=== PATIENT | female | born 1960 | race Caucasian/White ===

== ENCOUNTER 2025-03-12 09:00 | Outpatient (OUT) | payer OTHER, SELFPAY ==
--- OUTSIDE RECORDS SUMMARY | 2025-03-01 15:00 | XMS_ITS | Encounter Summary ---
Author Organization [facility] Address [address] [place] [id number] Care Team Providers Care Brake Rider Name Role Phone Arsen Winn MD Primary Care Provider Source Comments In the event this information is protected by the Federal Confidentiality of Alcohol and Drug AbusePatient Records regulations: The Federal rules restrict any use of the information to criminally investigate or prosecute any alcohol or drug abuse patient.[facility] Reason for Visit * ReasonCommentsLeukemia Encounter Details DateTypeDepartmentCare Team (Latest Contact Info)Fjsqmmzqxqk21/03/2025 3:00 PM ESTVisit (SP) Office Hematology/Oncology [address] [place] [address] [place] [address] Sanjana Beard APRN.FAMILY LIVING EDUCATOR [address] [place] [address] CLL (chronic lymphocytic leukemia) (HCC) (Primary Dx); History of pneumonia Social History Tobacco UseTypesPacks/DayYears UsedDateSmoking Tobacco: NeverSmokeless Tobacco: NeverAlcohol UseStandard Drinks/WeekCommentsNot Currently0 (1 standard drink = 0.6 oz pure alcohol)one drink per monthOverall Financial Resource Strain (CARDIA)AnswerDate RecordedHow hard is it for you to pay for the very basics like food, housing, medical care, and heating?Not hard at all08/31/2022HQ-2 AnswerDate RecordedPHQ-2 geasr23004/30/2024Hunger Vital SignAnswerDate Recorded Within the past 12 months, you worried that your food would run out before you got the money to buymore.Never true08/31/2022Within the past 12 months, the food you bought just didn't last and you didn't have money to get more.Never true 08/31/2022RAPARE - TransportationAnswerDate RecordedIn the past 12 months, has lack of transportation kept you from medical appointments or from getting medications?No08/31/2022In the past 12 months, has lack of transportation kept you from meetings, work, or from getting things needed for daily living?No 08/31/2022Housing Stability Vital SignAnswerDate RecordedIn the last 12 months, was there a time when you were not able to pay the mortgage or rent on time?No 08/31/2022Number of Places Lived in the Last YearNot on file08/31/2022In the last 12 months, was there a time when you did not have a steady place to sleep or slept in ashelter (including now)?No08/31/2022rea Deprivation IndexAnswer Date RecordedNational Score (1-100), lower number is lower wnkw874708/31/2022State Score (1-10), lower number is lower dmlq404ata from: https://www.neighborhoodatlas.medicine.[facility].edu/. Last address used for [address] [facility]08/31/2022CommentsNoSex and Gender InformationValueDate RecordedSex Assigned at LvanlBrprtg55/22/2020 12:31 AM EDT Legal ZprKnjkdf15/02/2012 9:32 AM ESTGender UdnxgfbhWgdfyg55/22/2020 12:31 AM EDTSexual XagnkvzobdsOmisvszq37/22/2020 12:31 AM EDTOccupationIndustryJob Start DateJob End DateCleansNot on fileNot on fileNot on filedocumented as of this encounter Last Filed Vital Signs Vital SignReadingTime TakenCommentsBlood Mfjgvvyt640/7103/01/2025 2:59 PM EST Tqhnl894903/01/2025 2:59 PM JUCBfusceiepgo49.6 ??C (97.8 ??F)03/01/2025 2:59 PM ESTRespiratory Uznz007705/01/2024 2:59 PM ESTOxygen Phipnihmrl71%03/01/2025 2:59 PM ESTInhaled Oxygen Concentration--Xmbmte93.1 kg (174 lb 6.1 oz)03/01/2025 2:59 PM ESTHeight--Body Mass Index31.904 6:02 PM EDTdocumented in this encounter Functional Status * Are you deaf or do you have serious difficulty hearing?AnswerDate of GpmoyuktykJmtoliGj74/07/2023 1:17 PM Maria Esther Castorena RN * Are you blind or do you have serious difficulty seeing, even when wearing glasses?AnswerDate of GbplomkdjhTusvueDk15/07/2023 1:17 PM Maria Esther Castorena RN * Do you have serious difficulty walking or climbing stairs?AnswerDate of LknyizmuirVcfksoQq12/07/2023 1:17 PM Maria Esther Castorena RN * Do you have difficulty dressing or bathing?AnswerDate of AssessmentAuthorNo 09/02/2022 1:17 PM Maria Esther Castorena RN * Because of a physical, mental, or emotional condition, do you have difficulty doing errands alone such as visiting a doctor's office or shopping?AnswerDate of UbapimfsvxGhqdysDu74/07/2023 1:17 PM Maria Esther Castorena RN documented as of this encounter Mental Status * Because of a physical, mental, or emotional condition, do you have serious difficulty concentrating, remembering, or making decisions?AnswerEntry Date EcdmcbWf87/24/2022 5:08 PM Shivani Lopez RN documented in this encounter Progress Notes * Sanjana Beard APRN.FAMILY LIVING EDUCATOR - 03/01/2025 3:00 PM EST Images from the original note were not included. NAME: Antony Mercedes CLINIC NO.: [id number] DATE OF SERVICE: March 01, 2025 (Kisha) Some elements in this clinic note that are critical to medical decision making have been carefully reviewed and included from a prior clinic note dated: January 13, 2024 (Luca) Referring Provider: Suyapa Quintanilla Additional Clinicians involved in Antony Mercedes's care: Yoselin Trivedi DIAGNOSIS: CLL CASE SUMMARY / ASSESSMENT: 64 year old woman with Omer 0 CLL SUMMARIZED PLAN: CBC, CMP, LDH, Uric acid q6 months RTC in 1 year - labs same day. AI ASSISTED A/P: 1. CLL (chronic lymphocytic leukemia) (HCC) (C91.10) WBC count has improved to 24 from 27.2 six months ago; platelet count is normal. No new B symptoms or lymphadenopathy reported. - Order CBC and CMP in 6 months. - Return to clinic in 1 year with labs completed 1 day prior to visit. - Advised patient to contact via Nuikut if any new symptoms or concerns arise before next scheduled follow-up. 2. History of pneumonia (Z87.01) Recent pneumonia resolved; no current concerns. CASE HISTORY - Reverse Chronological Order 01/28/2023 - MRI Foot/Toes: Plantar fasciitis at the central cord origin with small calcaneal spur and mild reactive bone marrow edema. Mild common peroneal and flexor hallucis longus tenosynovitis. 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 02/24/2021 - PB FLOW: CD5, CD19, CD20, CD45, CD200 and kappa slc (dim) - (CLL) 12/18/2020 - Absolute lymphocytosis noted on CBC - 4.92 04/09/2018 - CT Abdomen (Abdominal pain): Negative - no splenomegaly. HPI: Updated Visit, March 01, 2025: The patient is a 64-year-old female with leukocytosis presenting for routine follow-up. The patienthas been undergoing routine laboratory monitoring every 6 months. Since her last visit, she reports having recently recovered from pneumonia, which she states typically takes her longer to recover from compared to others. She reports mild sweating since her pneumonia, but denies any new or worsening symptoms, including night sweats, fever, or lymphadenopathy. Updated Visit, January 13, 2024: Here with sister Joy who is visiting from [place]. No B symptoms, reviewed findings thoroughly and answered all questions. Updated Visit, May 22, 2023: Karo returns today for a follow up. We reviewed her labs from March. Her glucose and LDH were both a little high. Overall, her blood work looks great. She had COVID in January - her symptoms were really bad. She has a cold sore on her upper lip, if she gets one again, she can ask her PCP for medication. Lady: Negative for suboccipital, cervical, submandibular, supraclavicular, axillary, epitrochlear LN chains. November 19, 2022, Updated Visit: Virtual Visit Joined by Joseph CLL - del 13q Doing well no B symptoms Doubling time within standards. No evidence of progression No weight loss - she is a summertime sweller. April 25, 2022, Updated Visit: Virtual Visit Joined by Joseph Newly diagnosed CLL - del 13q Updated Visit, March 07, 2022: Transition of Care I had the pleasure of meeting with Karo for transition of care after her previous oncologist Dr. Radha Quintanilla left our system. I reviewed her diagnostic and historical course with her. I also reviewed her recent laboratories that were obtained at [facility] with her. We noted that her I GVH stat us was mutated. This is a good prognostic indicator. Her FISH evaluation for CLL was not obtained and I will send for this again. Her CBC indicates lymphocytosis with an absolute lymphocyte count approximately 16,000 but she has normal H&H and platelet counts. She has no indicators for treatment at this time with no B symptoms. REVIEW OF SYSTEMS Per HPI and otherwise negative by full review of organ systems. ECOG PERFORMANCE STATUS: 0 PHYSICAL EXAMINATION: Vitals: BP 121/71 Pulse 80 Temp (Src) 97.8 (Temporal) Resp 16 Wt 174 lb 6.1 oz (79.1kg) SpO2 97% Body surface area is 1.86 meters squared. Exam limited to gross visualization where appropriate. Gen.: This is an age-appropriate patient in no acute distress. Head: Appears atraumatic with no visible lesions. Eyes: Pupils equally round and reactive to light, extraocular muscles are intact. Neck: Supple. Respiratory: Appears to be respiring comfortably. Neurologic: Nonfocal to gross visualization. Alert and oriented ??3. Psychiatric: No evidence of inappropriate anxiety or depression. Skin: Visible areas of skin without rash, lesions, wounds or petechiae. ALLERGIES: ALLERGIES Allergen Reactions Adhesive Tape (Krysta* skin irritation Amoxicillin Other: See Comments Ciprofloxacin Diarrhea, GI Upset, Mental Status Change, Vomiting Demoral [Meperidine] Vomiting Erythromycin Vomiting possible hives Latex Swelling Lexapro [Escitalopr* Other: See Comments Prednisone GI Upset Tramadol Vomiting Tylenol [Acetaminop* Makes pt. feel shaky/rapid heart rate MEDICATIONS: estradiol (ESTRACE) 0.01 % (0.1 mg/gram) vaginal cream Use 1 g vaginally two times a week. traZODone (DESYREL) 100 mg tablet OMEGA-3 FATTY ACIDS ORAL Take 1,000 mg by mouth once daily. Calcium Carbonate-Vitamin D3 180-5,000 mg-unit tab Take by mouth every other day. hyoscyamine (LEVSIN) 0.125 mg tablet Take 1 tablet by mouth every 8 hours as needed for up to 7 days. liothyronine (CYTOMEL) 5 mcg tablet Take 5 mcg by mouth twice daily. metroNIDAZOLE 0.75 % cream Apply 1 application to affected area as needed. LABORATORY VALUES: WBC (k/uL) Date Value 03/01/2025 24.00 (H) RBC (m/uL) Date Value 03/01/2025 4.73 Hemoglobin (g/dL) Date Value 03/01/2025 14.6 Hematocrit (%) Date Value 03/01/2025 43.6 MCV (fL) Date Value 03/01/2025 92.2 MCH (pg) Date Value 03/01/2025 30.9 MCHC (g/dL) Date Value 03/01/2025 33.5 RDW-CV (%) Date Value 03/01/2025 12.7 Platelet Count (k/uL) Date Value 03/01/2025 242 MPV (fL) Date Value 03/01/2025 9.9 Glucose (mg/dL) Date Value 03/01/2025 96 BUN (mg/dL) Date Value 03/01/2025 12 Creatinine (mg/dL) Date Value 03/01/2025 0.75 Sodium (mmol/L) Date Value 03/01/2025 139 Potassium (mmol/L) Date Value 03/01/2025 4.7 Chloride (mmol/L) Date Value 03/01/2025 103 CO2 (mmol/L) Date Value 03/01/2025 27 Protein, Total (g/dL) Date Value 03/01/2025 7.3 Albumin (g/dL) Date Value 03/01/2025 4.5 Calcium, Total (mg/dL) Date Value 03/01/2025 9.9 Alkaline Phosphatase (U/L) Date Value 03/01/2025 68 Bilirubin, Total (mg/dL) Date Value 03/01/2025 0.4 AST (U/L) Date Value 03/01/2025 24 ALT (U/L) Date Value 03/01/2025 33 DIAGNOSIS: (C91.10) CLL (chronic lymphocytic leukemia) (HCC) (primary encounter diagnosis) Plan: COMPLETE BLOOD COUNT AND DIFFERENTIAL, COMPREHENSIVE METABOLIC PANEL, LACTATE DEHYDROGENASE, URIC ACID (Z87.01) History of pneumonia PAST MEDICAL HISTORY Diagnosis Date Abnormal cytology 03/15/2016 Acute low back pain 03/20/2017 Asthma (HCC) Hypothyroidism 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 Antonio/Chris/Rpt in 10 years CYSTO.PANENDO 02/13/2022 CYSTOSCOPY 10/29/2016 Dr. Martinez - Dilation HYSTERECTOMY HX TONSILLECTOMY & ADENOIDECTOMY <AGE 14 TOTAL ABDOMINAL HYSTERECT W/WO RMVL TUBE OVARY 1999 Social History Tobacco Use Smoking status: Never Smokeless tobacco: Never Vaping Use Vaping status: Never Used Substance Use Topics Alcohol use: Not Currently Comment: one drink per month Drug use: No FAMILY HISTORY Problem Relation Age of Onset other (lipids) Father Ischemic Heart Disease Father stent Cataract Mother other (POTS) Mother other (Ankylosing spondylitis) Mother other (Mary Kay Danlos Syndrome) Sister other (Scoliosis) Sister other (Scoliosis) Sister other (POTS) Sister other (diverticulitis) Maternal Grandmother Ischemic Heart Disease Paternal Grandfather of [place] in 50's. Crohn's Disease Son I spent a total of 20 minutes on the date of the service which included preparing to see the patient, kdpb-ri-jarn patient care, completing clinical documentation, obtaining and/or reviewing separately obtained history, performing a medically appropriate examination, counseling and educating the pat ient/family/caregiver, ordering medications, tests, or procedures, independently interpreting results (not separately reported), communicating results to the patient/family/caregiver, and care coordination (not separately reported). Sanjana Beard APRN, [facility] BLANCHER-[facility], [facility] H[facility] Provided at: [place], [place] CC: Arsen Winn MD, [address] [facility] [id number] documented in this encounter Plan of Treatment DateTypeDepartmentCare Team (Latest Contact Info)Uiqxyeqjham19/04/2026 2:45 PM EDTOffice Visit [facility] [address] [place] [address] [place] [address] 6 month lab02/28/2026 2:45 PM ESTOffice Visit [facility] [address] [place] [address] LABS02/28/2026 3:00 PM ESTVisit (SP) Office Hematology/Oncology [address] [place] [address] Sanjana Beard APRN.FAMILY LIVING EDUCATOR [address] [place] [address] 1 year follow up with labsNameTypePriorityAssociated DiagnosesOrder Schedule COMPLETE BLOOD COUNT AND DIFFERENTIALLabRoutine CLL (chronic lymphocytic leukemia) (HCC) Every 6 months for 2 Occurrences starting 03/01/2025 until 03/01/2026 COMPREHENSIVE METABOLIC PANELLabRoutine CLL (chronic lymphocytic leukemia) (HCC) Every 6 months for 2 Occurrences starting 03/01/2025 until 03/01/2026LACTATE DEHYDROGENASELabRoutine CLL (chronic lymphocytic leukemia) (HCC) Every 6 months for 2 Occurrences starting 03/01/2025 until 03/01/2026URIC ACID LabRoutine CLL (chronic lymphocytic leukemia) (HCC) Every 6 months for 2 Occurrences starting 03/01/2025 until 03/01/2026documented as of this encounter Visit Diagnoses Diagnosis CLL (chronic lymphocytic leukemia) (HCC)- Primary Chronic lymphoid leukemia, without mention of having achieved remission History of pneumonia Personal history of pneumonia (recurrent) documented in this encounter Care Teams Team MemberRelationshipSpecialtyStart DateEnd Date Arsen Winn MD [address] [place] [address] PCP - GeneralFamily Medicine07/01/19documented as of this encounter
--- OUTSIDE RECORDS SUMMARY | 2025-03-12 03:53 | XMS_ITS | Continuity of Care Document ---
Author Organization [facility] Address [address] [place] [address] Phone Care Team Providers Care Environmental Conflict Manager Name Role Phone Susannah Mcgill APRN Primary Care Provider Russel Pickard PA-C Emergency Provider [phone] Mandy Morelos DO Attending Provider Jie Dave APRN Attending Provider Susannah Mcgill APRN Attending Provider Care Teams Patient Care Team Team Status: Active Member Role/Relationship Status Dates Susannah Mcgill APRN [employer]ER-C Primary Care Provider Active Susannah Mcgill APRN [employer]ASS INSTALLER-CPrimary Care ProviderActive Visit Care Team Team Status: Inactive Member Role/Relationship Status Dates Susannah Mcgill APRN [employer] INST[employer]-C Primary Care Provider Active Start: January 052024 End: January 05, 2025Jorge Alberto Thrasher ProviderActiveStart: January 05, 2025 End: January 05, 2025 Visit Care Team Team Status: Inactive Member Role/Relationship Status Dates Susannah Mcgill APRN [employer] INST[employer]-C Primary Care Provider Active Start: December 282024 End: January 06orly Morelos DOAttending ProviderActiveStart: January 06, 2025 End: January 06, 2025 Visit Care Team Team Status: Inactive Member Role/Relationship Status Dates Susannah Mcgill APRN [employer] INST[employer]ER-C Primary Care Provider Active Start: January End: February 11Jones Deluca ProviderActiveStart: February 11, 2025 End: February 11, 2025 Visit Care Team Team Status: Inactive Member Role/Relationship Status Dates Susannah Mcgill APRN [employer] INSTALLER-C Primary Care Provider Active Start: January End: February 11Jones Deluca ProviderActiveStart: February 11, 2025 End: February 11, 2025 Patient Care Team Team Status: Inactive Member Role/Relationship Status Dates Susannah Mcgill APRN [employer] INST[employer]ER-C Primary Care Provider Active Start: March 122024 End: March 12, 2025Susannah Mcgill APRN [employer] GLASS INSTALLER-CAttending ProviderActive Start: March 12, 2025 End: March 12, 2025 Chief Complaint and Reason for Visit Chief Complaint Admit Date abd pain January 05, 2025 10:19am diverticulitis January 06, 2025 10:23am cough February 11, 2025 2 :07pm R05.9 R06.02 February 11, 2025 2 :45pm pneumonia f/u March 12, 2025 8:24am Reason for Visit Admit Date Diverticulitis January 06, 2025 10:23am Respiratory infection February 11, 2025 2:07pm Asthma March 12, 2025 8:24am Eustachian tube dysfunction February 8:24am Allergies, Adverse Reactions, Alerts Allergen Type Severity Reaction Last Updated Verified Status Comments amoxicillin Allergy Moderate Unknown Reaction Novembe r 2024 8:25am Yes Active ciprofloxacinAllergyUnknownGINovember 2024 8:25amYesActiven/v/ and diarrheaerythromycin baseAllergyUnknownVomitingNovember 2024 8:25amYes ActivemeperidineAllergyUnknownVomitingNovember 2024 8:25amYesActive adhesive tapeAllergyUnknownSwelling of Lip/Tongue/ThroatNovember 2024 8:25amYesActivelatexAllergyUnknownSwelling of Lip/Tongue/ThroatNovember 2024 8:25amYesActivemetronidazoleAllergyUnknownHivesNovember 2024 8:25am YesActivedizziness, reaction to the oral meds also GI Social History Smoking Status Status Start Date End Date Date of Observa tion Never smoked tobacco (finding) January 05, 2025 12:36pm Observation Status Observation Response Date of Response Legal Sex Female (finding) Sex Assigned At BirthFemaleDecember 1959 Family History Relationship Condition Age at Onset Recorded Date/T sloane brother Diabetes mellitus Unknown fatherHeart diseaseUnknownsonAcute Crohn's diseaseUnknownmotherDisorder of liver Unknown Problems Active Problems Problem Diagnosis/Recorded Date Onset Date Status C omments Alternating constipation and diarrhea August 01, 2023 12:33pm Unknown Active Eustachian tube dysfunctionNovember 2024 8:48amUnknownActiveShortness of breathNovember 2024 8:51amUnknownActiveChronic lymphatic leukemiaMay 2023 6:55amUnknownActiveAnxietyJanuary 2024 9:56amUnknownActiveDysphagia August 01, 2023 12:55pmUnknownActiveDiarrheaMarch 2024 10:49amUnknown ActiveDysuriaApril 2024 10:29amUnknownActiveHypothyroidJune 2023 2:13pmUnknownActiveEarly satietyJune 2023 10:54amUnknownActiveImpaired fasting glucoseJanuary 2024 9:54amUnknownActivePOTS (postural orthostatic tachycardia syndrome)April 19, 2019 9:53amUnknownActiveFecal urgencyJuly 2023 12:51pmUnknownActiveAbdominal pressureJune 2023 10:54amUnknown ActiveBronchitisApril 2024 3:06pmUnknownActiveElevated LDL cholesterol levelJanuary 2024 9:55amUnknownActiveNauseaJune 2023 10:54amUnknown ActiveIBS (irritable bowel syndrome)November 04, 2023 12:52pmUnknownActiveAsthmaMay 2023 6:56amUnknownActiveseasonal allergiesInactive/Resolved Problems Problem Diagnosis/Recorded Date Onset Date Status C omments Diverticulitis January 05, 2025 12:19pm Unknown Reso lved Medications Medication Status Dose Units Route Directions Qty Days Refills S tart Date Stop Date End Date Reason(s) Instructions Adherence Amoxicillin-Pot Clavulanate (Augmentin Xr) 1,000-62.5 mg tablet extended release 12 hr Discontinued 1 TAB PO Twice daily 14 7 0 August 21, 2023 11:00pm August 22, 2023 2:05pmAmoxicillin-Pot Clavulanate (Augmentin) 250-62.5 mg/5 mL suspension for boziahoiipnkreDpflgshwrbvy1JPQZVkrck uqorn6690Oheam 2023 11:00pmMay 2023 6:43amDicyclomine 10 mg vauxbbyMsopsncmsvdi38NLNQHuwri jluli40468Kmsgk 2024 11:00pmApril 2024 2:48pmTrazodone 100 mg tablet Tsnzgm481SQVVSvhbs at iejvkux56703Mmzn 2024 2:00pmAnxiety Anxiety disorder, unspecifiedComplies with drug therapyThyroid (Pork) (Night Auditor Thyroid) 15 mg jcnqwxUxbyhx60MKPKPsqzp061395Iish 2024 11:00pm Hypothyroidism Hypothyroidism, unspecifiedComplies with drug therapyLevothyroxine (Synthroid) 25 mcg TabletDiscontinuedMCGPODailyDecember 2018 12:00amApril 2023 12:36pmAmoxicillin-Pot Clavulanate (Augmentin) 875-125 mg AxizxlJeyquqpdfoob6RQX MTZ98IYhquhhis 2018 12:00amApril 2023 12:35pmAlbuterol Sulfate 90 mcg/actuation Hfa Aerosol InhalerDiscontinued1 - 4AYGQGGIJXQIHBEF7V as needed for WheezingDecember 2018 12:00amApril 2023 12:39pmPrednisone 10 mg NivvprCrwtkhvniezv18FBJVVrxds301Cgqltasw 2018 12:00amApril 2023 12:36pmadminister with food or milkAzithromycin (Zithromax Z-Christian) 250 mg Tablet Omooymutynsg6lcvy pkPOas directed on dose ebxb75Cgoldhkq 2018 12:00amApril 2023 12:36pmtake 500 mg today (day 1), then 250 mg for 4 days (days 2-5) Promethazine-Codeine 6.25-10 mg/5 mL IognxXpgwwjcvqhmg1CWCLU6P as needed for Vppxv95828Zmtthcgq 2018 12:00amApril 2023 12:36pmAcute asthmatic bronchitis Unspecified asthma, uncomplicatedIbuprofen 600 mg MyapwyAwpvonmoroxc005FCRHSqxah 6 hours as needed for Srkp367Xkbpruzu 2018 12:00amApril 2023 12:36pm do not exceed 4 doses in a 24 hour periodAlbuterol Sulfate 90 mcg/actuation HFA aerosol inhalerActive1 - 2FXOCTCHCSGTYULZ7M as needed for WheezingApril 2023 12:35pmComplies with drug therapyAmoxicillin-Pot Clavulanate 875-125 mg vvfxgnAvywendykqfw1GXNGOZqkpu qxjlj014Qwvfxftfw 8th, 2025 11:00pmSeptember 2024 9:35amOndansetron 4 mg tablet,bcslazbaqvltrtVpjjxu6WLMR4-9 TIMES PER DAY as needed for nausea and bnihqhto206Wowfmnljv 8th, 2025 11:00pmComplies with drug therapyFluticasone Propionate (Flonase Allergy Relief) 50 mcg/actuation spray,vivmcflpxfVmlvqeclsvtf0NKPAHFKQERNDEIAQrnkrXck 2023 11:00pmNovember 2024 8:50amFreeTextSi spray in each nostril Nasally Once a day; Note: Source Status: Not-Taking\PRN; Provider: Parth CeronOndansetron 4 mg tablet,dcqbtwqnsievypPfihjodzsazg2XDBANpoid 6 hours as needed for nausea and vomitingApril 2023 11:00pmOctober 2023 1:02pmMoxifloxacin 400 mg teifcaFsrysvmhbtww279FRXMZnjbm 2023 11:00pmMay 2023 6:43amTrazodone 100 mg jhcwnzMfyjtcjguwhj839RPOBWrigq at bedtimeApril 2023 11:00pmJanuary 2024 1:57pmThyroid (Pork) 30 mg abtfcaWtqriljigees22AJVOMdlhp dailyApril 2023 11:00pmJanuary 2024 1:56pmNaltrexone 1.5 mg capsuleDiscontinued 1.5MGPOApril 2023 11:00pmMay 2023 6:44amtitrating up to 4.5 mg Amoxicillin-Pot Clavulanate 400-57 mg/5 mL suspension for reconstitution Faxnjdcgjeoi21UILCRdyo4992Yvqju 2023 11:00pmApril 2023 1:40pm Linaclotide (Linzess) 145 mcg glcfkpwUxnriyyruwox461EQBXBGglmu21813Lvro 2023 11:00pmOctober 2023 1:02pmHyoscyamine Sulfate 0.125 mg tabletActive 0.125MGPOas neededApril 2024 11:00pmComplies with drug therapyNaltrexone 1.5 mg capsuleActiveMGPOApril 2024 11:00pmThis is a titrationComplies with drug therapyOmeprazole 20 mg tablet,disintegrat, delay bhfZxcbbu29FBSUQkwyv65848 Arianne 2024 11:00pmComplies with drug therapyAmoxicillin-Pot Clavulanate (Augmentin Es-600) 600-42.9 mg/5 mL suspension for peuebnddayrxsjHsyqsostyelo7UI POTwice pulwh565010Gopmfdqzg 2024 11:00pmOctober 2024 1:13pm Guaifenesin 600 mg tablet extended release 34mbYummfgoljyti314NKPJGxzkn daily as needed for chest rydghmdmqz543Ipvwxbv 2024 11:00pmNovember 2024 8:31amDoxycycline Monohydrate 25 mg/5 mL suspension for reconstitution Maknbrooebnc17AWSVNxpqg kysne87574Akitsdx 2024 11:00pmNov2024 8:50amwith foodBenzonatate 200 mg ijtkvsnZwvykxiylszn292KQRMXfnmi times daily as needed for rcxou326Qmvtvgn 15th, 2025 11:00pmMarch 12, 2025 8:50am Fluticasone Propionate (Flonase Allergy Relief) 50 mcg/actuation spray,xdxnncgrsqWnjbbd1BTBDSSDREUWPVIDNcmfi vvbcm93916EjqvwzijMarch 12, 2025 8:47am Dysfunction of eustachian tube Unspecified Eustachian tube disorder, unspecified earComplies with drug therapy Budesonide-Formoterol (Symbicort) 80-4.5 mcg/actuation HFA aerosol inhalerActive 1INHINHALATIONTwice daily10.2024 12:00amAsthma Mild intermittent asthma, uncomplicatedComplies with drug therapyBenzonatate 200 mg lcjbejuAeljqn486MJRMZzbjv times daily as needed for wvfpu802Mabpcmoy2024 8:49amComplies with drug therapyPrednisone 10 mg kddghsJnxyss82BRSGsvrqo041 March 12, 2025 12:00amTake 40 mg for 2 days, 30 mg for 2 days, 20 mg for 2 days, 10 mg for 2 days, 1/2 tablet for 2 daysComplies with drug therapyThyroid (Pork) 30 mg ynaajdIwdoobecufbf57BQRGUidamXvamgqy 2024 1:50pmJuly 2024 2:01pmHypothyroidism Hypothyroidism, unspecifiedTrazodone 100 mg zdqjapQarhhpmaqdob527SDZMDyeey at bedtimeJanuary 2024 1:56pmJuly 2024 2:02pmAnxiety Anxiety disorder, unspecified Immunizations Immunization Event Date Not Given Reason Dose Number Gearman Lot Number Reason(s) Given Vaccine Information Statement (VIS) Detail Administration Location COVID-19 mRNA, Comirnaty (TraNet'te) July 08 COVID-19 mRNA, Comirnaty ([employer]Net[employer]e)July 29OVID-19 mRNA, Comirnaty ([employer]Net[employer]e)March 26OVID- mRNA Bivalent Booster (TraNet'te)January 13OVID-19 ([employer]) 12Y and olderJanuary 2023Influenza Quadrivalent PF MDCKDecember 2021 Procedures Procedure Date Performed Status CT abdomen pelvis w con January 05, 2025 11:3 2am completed XR chest 2V* February 11, 2025 1:59pm comple barb Relevant Diagnostic Tests and/or Laboratory Data Laboratory Results Test Collection Date/Time Result Date/Time Result Interpretation Reference Range Result Comment Performing Site Corrected White Blood Count January 05, 2025 10:38am January 05, 2025 10:55am 26.6 10*3/uL Above high normal 3.8-11.6 [facility] [id number] [address] [facility] 86677Wuloglxhbjw WBC CountSeptember 2024 10:38amSeptember 2024 10:55am26.6 10*3/uLAbove high normal3.8-11.6F[facility] [id number] [address] [facility] 39656Bii Blood CountSeptember 2024 10:38amSeptember 2024 10:55am4.75 10*6/uL3.60-5.00[facility] [id number] [address] [facility] 69711WdbcmtrsjoPndgogpxy 2024 10:38amSeptember 2024 10:55am14.6 g/dL11.8-15.4F[facility] [id number] [address] [facility] 04566ArzytwpsmgEjtnsdveu 2024 10:38amSeptember 2024 10:55am43.4 %34.0-46.4FMem[facility] [id number] [address] [facility] 54922Vvcp Corpuscular VolumeSeptember 2024 10:38amSeptember 2024 10:55am91.5 gS87-079OjbblpznsMagruder Memorial [facility] [id number] [address] [facility] 11140Pjfa Corpuscular HemoglobinSeptember 2024 10:38amSeptember 2024 10:55am30.8 pg24.7-34.3FMemorial [facility] [id number] [address] [facility] 66743Tgnb Corpuscular Hemoglobin ConcentSeptember 2024 10:38am January 05, 2025 10:55am33.7 g/dL32.0-35.0[facility] [id number] [address] [facility] 88721Wap Cell Distribution WidthSeptember 2024 10:38amSept2024 10:55am13.0 %11.9-15.3F[facility] [id number] [address] [place] [address] 43006Gksqwsei CountSept2024 10:38amSept2024 10:23kf378 10*3/uC083-820SzojmlqwdMagruder Memorial [facility] [id number] [address] [place] [address] 13252Nnza Platelet VolumeSept2024 10:38amSept2024 10:55am8.1 fL6.3-10.7FMem[facility] [id number] [address] [place] [address] 20365Dusglquo Distribution WidthSeptember 2024 10:38amSept2024 11:49am24.83 %Above high normal0.00-20.00The predictive value of MDW for identifying sepsis in patients with hematological abnormalities hasnot been establishedMag[facility] [id number] [address] [facility] 22527Siiocbpjeuc (%) (Auto)January 05, 2025 10:38amSept2024 11:49amN/[facility] [id number] [address] [place] [address] 43873Sayxrgstklw (%) (Auto)January 05, 2025 10:38amSept2024 11:49amN/[facility] [id number] [address] [place] [address] 28723Nphxmfcsf (%) (Auto)January 05, 2025 10:38amSept2024 11:49amN/[facility] [id number] [address] [place] [address] 88778Qctdihmnkdj (%) (Auto)January 05, 2025 10:38amSeptember 2024 11:49amN/[facility] [id number] [address] [facility] 30557Hhyrgxrbu (%) (Auto)January 05, 2025 10:38amSeptember 2024 11:49amN/[facility] [id number] [address] [facility] 62856Luxjcexei RBC Relative Count (auto)January 05, 2025 10:38am January 05, 2025 11:49amN/[facility] [id number] [address] [facility] 36876Aoooybejmlv # (Auto)January 05, 2025 10:38amSeptember 2024 11:49amN/[facility] [id number] [address] [facility] 99451Pwovndwhyqb # (Auto)January 05, 2025 10:38amSeptember 2024 11:49amN/[facility] [id number] [address] [facility] 95130Eqyshbynv # (Auto)January 05, 2025 10:38amSeptember 2024 11:49amN/[facility] [id number] [address] [facility] 92022Uqnpstbwaav # (Auto)January 05, 2025 10:38amSeptember 2024 11:49amN/[facility] [id number] [address] [facility] 89787Bkbzgwtiv # (Auto)January 05, 2025 10:38amSeptember 2024 11:49amN/[facility] [id number] [address] [facility] 72314Prwlggrgq NeutrophilsSept2024 10:38amSeptember 2024 11:49am29 %Below low -15ZynxmfypwMagruder Memorial [facility] [id number] [address] [facility] 14700Oscieycigby %January 05, 2025 10:38amSeptember 2024 11:49am62 %Above high fozosb88-79IkozfmwxeMagruder Memorial [facility] [id number] [address] [facility] 73313Eusdasvrn %Arianne 2024 10:38amSeptember 2024 11:49am10 %2-11[facility] [id number] [address] [facility] 91261Euh Blood Cell MorphologySeptember 2024 10:38amSeptember 2024 11:49amN/[facility] [id number] [address] [facility] 43963CmqweqmctjolFvrllbfpo 2024 10:38amSeptember 2024 11:49amSlightMagruder Memorial [facility] [id number] [address] [facility] 81685RaoyhetzmcwuEnnlnvjxq 2024 10:38amSeptember 2024 11:49amSlightMagruder [facility] [id number] [address] [facility] 03277Pctlup CellsSeptember 2024 10:38amSeptember 2024 11:49amModerateMagruder Memorial Hospital [facility] [id number] [address] [facility] 05365Noxlckrg EstimateSeptember 2024 10:38amSeptember 2024 11:49amNormalNormalMagruder [facility] [id number] [address] [facility] 37116Bqylghts Morphology CommentSeptember 2024 10:38amSeptember 2024 11:49amNormalNormalMagruder [facility] [id number] [address] [facility] 24231Brdxq ColorSeptember 2024 10:32amSeptember 2024 10:55amLight-yellowYellowMagruder Memorial Hospital [facility] [id number] [address] [facility] 48897Egiqh AppearanceSeptember 2024 10:32amSeptember 2024 10:55amClearClearMagruder Memorial [facility] [id number] [address] [place] [address] 40557Qouzz Specific GravitySeptember 2024 10:32amSeptember 2024 10:55am1.0111.001-1.030[facility] [id number] [address] [facility] 75853Cxzfe pHSeptember 2024 10:32amSeptember 2024 10:55am 7.55.0-9.0[facility] [id number] [address] [facility] 22043Mhqzp Leukocyte EsteraseSeptember 2024 10:32amSeptember 2024 10:55amNegativeNegativeMagruder Memorial [facility] [id number] [address] [facility] 44653Ersbp NitriteSeptember 2024 10:32amSeptember 2024 10:55amNegativeNegativeMagruder Memorial [facility] [id number] [address] [facility] 32407Sfsza ProteinSeptember 2024 10:32amSeptember 2024 10:55amNegative mg/dLNegativeMagruder Memorial [facility] [id number] [address] [facility] 87545Flipc Glucose (UA)Arianne 2024 10:32amSeptember 2024 10:55amNormal mg/dLNormalMagruder Memorial Hospital [facility] [id number] [address] [facility] 98049Gdapj KetonesSeptember 2024 10:32amSeptember 2024 10:55amNegativeNegativeMagruder Memorial [facility] [id number] [address] [facility] 86619Hwfsd UrobilinogenSeptember 2024 10:32amSeptember 2024 10:55amNormal mg/dLNormalMagruder Memorial Hospital [facility] [id number] [address] [facility] 80135Benlc BilirubinSeptember 2024 10:32amSeptember 2024 10:55amNegativeNegativeMagruder Memorial [facility] [id number] [address] [facility] 10630Ayjve Occult BloodSeptember 2024 10:32amSeptember 2024 10:55amNegativeNegativeMagruder Memorial [facility] [id number] [address] [facility] 13717Citkv HCG, QualitativeSeptember 2024 10:32amSeptember 2024 10:56amNegativeMagruder Memorial Hospital [facility] [id number] [address] [facility] 88432Shcejre LevelSeptember 2024 10:38amSeptember 2024 11:13am97 mg/hZ16-861GTQ recommended reference rangeRandom Glucose Reference Range is dependent on time and content of last meal. Glucose of more than 200 mg/dL in a nonstressed, ambulatory subject supports the diagnosisof Diabetes Mellitus.[facility] [id number] [address] [facility] 89381Rmurz Urea NitrogenSeptember 2024 10:38amSeptember 2024 11:13am11 mg/dL7-25[facility] [id number] [address] [facility] 35090VpwkjjvhjjQscshkvis 2024 10:38amSeptember 2024 11:13am0.79 mg/dL0.60-1.20[facility] [id number] [address] [facility] 31718Owlqorskk GFR (CKD-EPI)January 05, 2025 10:38amSeptember 2024 11:13am> 60.0 mL/MinMagruder Memorial Hospital [facility]tr [id number] [address] [facility] 45297Sdllkg LevelSeptember 2024 10:38amSeptember 2024 11:02xv532 mmol/Z122-876DpeepvlayMagruder Memorial Hospital [facility] [id number] [address] [facility] 54313Fchspwlwj LevelSeptember 2024 10:38amSeptember 2024 11:13am3.9 mmol/L3.5-5.1FMem[facility] Health [facility] [id number] [address] [facility] 96483Shnpgsbv LevelSeptember 2024 10:38amSeptember 2024 11:81vv035 mmol/R33-674GzzsotiogMagruder Memorial [facility] [id number] [address] [facility] 12585Bwhmsg Dioxide LevelSeptember 2024 10:38amSeptember 2024 11:13am27.0 mmol/L21.0-31.0[facility] [id number] [address] [facility] 48421Cpidq GapSeptember 2024 10:38amSeptember 2024 11:13am 11.9 mEq/L6.0-15.0[facility] [id number] [address] [facility] 60253Snpowru LevelSeptember 2024 10:38amSeptember 2024 11:13am9.6 mg/dL8.6-10.3FMem[facility] Health [facility] [id number] [address] [facility] 47360Bvqyt ProteinSeptember 2024 10:38amSeptember 2024 11:13am7.8 g/dL6.4-8.9[facility] [id number] [address] [facility] 12189EzmxuxuTugnswyzi 2024 10:38amSeptember 2024 11:13am 4.9 g/dL3.5-5.7FMem[facility] Health [facility] [id number] [address] [facility] 31533SzxtglzqQnbfggwsx 2024 10:38amSeptember 2024 11:13am 2.9 g/dLMagruder Memorial Hospital [facility] [id number] [address] [facility] 88737Efdalgz/Globulin RatioSeptember 2024 10:38amSeptember 2024 11:13am1.7FMemorial Health System [facility] [id number] [address] [facility] 70122Lehlu BilirubinSeptember 2024 10:38amSeptember 2024 11:13am0.9 mg/dL0.3-1.0[facility] [id number] [address] [facility] 67353Vuoblc BilirubinSeptember 2024 10:38amSeptember 2024 11:13am0.10 mg/dL0.03-0.18FMem[facility] [id number] [address] [facility] 45053Ggadcstt BilirubinSeptember 2024 10:38amSeptember 2024 11:13am0.8 mg/dLMagruder Memorial [facility] [id number] [address] [place] [address] 00800Xmguutfxz Amino Transf (AST/SGOT)January 05, 2025 10:38am January 05, 2025 11:13am24 U/J81-55HxjgnnovzMagruder Memorial Hospital [facility]tr [id number] [address] [place] [address] 98252Yxfipve Aminotransferase (ALT/SGPT)January 05, 2025 10:38am January 05, 2025 11:13am29 U/L7-52[facility] [id number] [address] [place] [address] 66447Kwufgibo PhosphataseSeptember 2024 10:38amSeptember 2024 11:13am66 U/D51-937KntoukasuMagruder Memorial Hospital [facility]tr [id number] [address] [place] [address] 26176JkeifnFjspcbcfk 2024 10:38amSeptember 2024 11:13am 28.0 U/L11.0-82.0[facility] [id number] [address] [place], [place] [address]Pharmacy Creatinine Clearance (ChemSeptember 2024 10:38am January 05, 2025 11:13am72.24[facility] [id number] [address] [place], [place] [address] Diagnostic Imaging Reports Author Ignacio Lal [facility] HospitalAuthoredSeptember 2024 1:04pmReport Dictated Date/TimeDictated ByStatusRadiology ReportSeptember 2024 1:04pm [facility] [place] [id number] [place] Scan Report Signed Patient: Antony Mercedes MR#: [id number] : 1960 Acct:[id number] Age/Sex: 64 / F ADM Date: 5 Loc: ER Room: Type: [facility] ER Attending Dr: Copies to: Russel Pickard PA-C~ Ordering Provider: Russel Pickard PA-C Date of Service: 01/05/25 CT/CT abdomen pelvis w con: LLQ TTP. CT Abdomen and Pelvis withcontrast TECHNIQUE: Axial imaging with 2-D reconstruction. . The CT exam was performed using one or more the following dose reduction techniques: Automated exposure control, adjustment of the MA and/or Kv according to patient size, or use of the iterative reconstruction technique. COMPARISON: 10/17/2023 History: Left lower quadrant pain LIMITATIONS: None LOWER THORAX Unremarkable LIVER: Hepatic steatosis GALLBLADDER: No gallbladder abnormality identified. BILE DUCTS: No dilatation SPLEEN: Unremarkable PANCREAS: Unremarkable ADRENAL GLANDS: Unremarkable KIDNEYS:Right renal cyst. No nephrolithiasis or hydronephrosis. AORTA: No abdominal aortic aneurysm identified. RETROPERITONEUM: No significant retroperitoneal abnormalities identified. MESENTERY:Unremarkable STOMACH:Unremarkable SMALL BOWEL: The small bowel loops are nondistended. APPENDIX: The appendix is normal. COLON: Descending and sigmoid diverticulosis. Mild peridiverticular fatty stranding and sigmoid colon. No extraluminal air. No abscess. URINARY BLADDER: Urinary bladder is unremarkable. REPRODUCTIVE SYSTEM: Reproductive structures are unremarkable. PNEUMOPERITONEUM: None PERITONEAL FLUID:None BONY STRUCTURES: Mild degeneration ABDOMINAL WALL: Unremarkable CT/CT abdomen pelvis w con IMPRESSION: Mild uncomplicated sigmoid diverticulitis. Impression dictated by: Ignacio Lal M.D. 01/05/2025 1:08 PM Dictation Location: [place] [address] Transcribed By: [facility] 01/05/25 1308 Dictated By: Ignacio Lal DO 01/05/25 1304 Signed By: <Electronically signed by Ignacio Lal DO in [place]> 01/05/25 1308 Author Avila Covington [facility] HospitalAuthoredOctjane [facility] 2024 3:34pmReportDictated Date/TimeDictated ByStatusRadiology ReportOctober 2024 3:34pmRemigio RoqueMercy Health West [facility] [place] [address] [place] [address] XRay Report Signed Patient: Antony Mercedes MR#: [id number] : 1960 Acct:[id number] Age/Sex: 64 / F ADM Date: 5 Loc: [id number] Room: Type: [facility] Attending Dr: Jie Dave APRN Copies to: Jie Dave APRN~ Ordering Provider: Jie Dave APRN Date of Service: 02/11/25 XR/XR chest 2V*: R06.02 - Shortness of breath PA AND LATERAL CHEST: CLINICAL HISTORY: Shortness breath COMPARISON: 07/17/2024 FINDINGS: Unremarkable cardiomediastinal. Lungs clear. No effusion or pneumothorax. XR/XR chest 2V* IMPRESSION: NO ACUTE CARDIOPULMONARY ABNORMALITY. Impression dictated by: Avila Covington M.D. 02/11/2025 3:35 PM Dictation Location: [place] [address] Transcribed By: [facility] 02/11/251534 Dictated By: Avila Covington MD 02/11/251533 Signed By: <Electronically signed by Avila Covington MD in [place]> 02/11/251534 Vital Signs Vital Reading Result Reference Range Collection Date/Time Height 62 [in_i] January 05, 2025 9:39jrVymmma53.80 kgSeptember 2024 9:40amBody Cofsezfmulg87.5 [degF]97.6-99.0Sept2024 9:40amHeart Rate71 /hmi64-036 January 05, 2025 11:54amRespiratory rate18 /acy27-37Ktuspaxlp 9th, 2025 11:54amOxygen saturation by Pulse %95-100Sept2024 11:54am BP Ugslglib225 mm[Hg]100-140Sept2024 11:54amBP Sejyzmtph28 mm[Hg] 60-100September 2024 11:43qiKatwou74 [in_i]January 06, 2025 9:27am Fuiboo21.80 kgSept2024 9:27amBMI (Body Mass Index)32.1 kg/m2 January 06, 2025 9:70mjJavdpn82 [in_i]February 11, 2025 1:57liDvplvz87.80 kgOctober 2024 1:08pmBody Elyvwvikvyy98.1 [degF]97.6-99.0October 2024 1:08pmHeart Rate86 /kfa64-914Qcnhqjj 16th, 2025 1:08pmOxygen saturation by Pulse dottvvrd11 %95-100[facility] 2024 1:08pmBP Purvecok025 mm[Hg]100-140 February 11, 2025 1:08pmBP Kjyzkyyxm59 mm[Hg]60-100Janj[facility] 2024 1:08pmBMI (Body Mass Index)32.1 kg/m3Fuhmhwk 2024 1:27tuNifhtb88 [in_i]March 12, 2025 8:90xqStrsda81.37 kgNov[facility]2024 8:27amBody Ygklmzcoemv24.9 [degF]97.6-99.0[facility]2024 8:27amHeart Rate84 /evo94-970Iqptjkvt 2024 8:27amOxygen saturation by Pulse rtpanktn09 %95-100[facility]2024 8:27amBP Orztthow502 mm[Hg]100-140[facility]2024 8:27amBP Ilencctxc35 mm[Hg]60-100[facility] 2024 8:27amBMI (Body Mass Index)32.0 kg/e2Aijduwrq 2024 8:27am Advance Directives Advance Directive Response Recorded Date/ Time Advance Directives No May 13, 2017 2:44pm Insurance Providers Guarantor Brianna Meraz Address [address] [id number] Info.Home Phone: Coverage Status Update:2025 Payer Group Member ID Coverage Type Subscriber Relationship to Subscriber Effective Date Expiration Date [employer] Claims Id: [id number] Klein , M Id: [id number] [id number] [address] Home Phone: Email: .LeisureLogixSelf Encounters Encounter Location(s) Arrival/Admit Date Discharge/Departure Date Discharge/Departure Disposition Provider(s) Departed Emergency -Emergency Room January 05, 2025 10:19am January 05, 2025 2:10pm Discharged to home care or self care (routine discharge) [facility] 10:23amSeptember 2024 10:41amDischarged to home care or self care (routine discharge)Mandy Morelos , DODeparted Physician/Provider Office Visit- [facility] [place] 2024 2:07pmOctober 2024 3:51pm Discharged to home care or self care (routine discharge)Brianna Menendez APRN Departed [facility] 250Oct[facility] 2024 2:45pmOctober 2024 2:46pmDischarged to home care or self care (routine discharge)Brainna Menendez APRNDeparted Physician/Provider Office Visit-[facility] 2024 8:24amNovember 2024 8:53amDischarged to home care or self care (routine discharge)Susannah Mcgill APRN [employer] MANAGER Recent Diagnosis Onset Date Admit Date Diverticulitis Unknown January 06, 2025 10:23am Respiratory infection Unknown February 112024 2:07pm Asthma Unknown March 12, 2 025 8:24am Eustachian tube dysfunction [facility] 20[facility] 8:24am Assessments Diagnosis Onset Date Resolution Status Admit Date Diverticulitis inactiveSept2024 10:23amRespiratory infectionnoneactiveOctjane [facility]ford memorial hospital 2024 2:07pmAsthmaacuteNov2024 8:24amEustachian tube dysfunction acuteNov2024 8:24am Plan of Treatment Author Mandy Morelos [facility]2024 9:44amacute uncomplicated sigmoid -will send liquid augmentin x 14 days -start on PPI x 14 days. Can extend to 30 days if needed. Pt prefers a liquid form of this as well. -CLD and advance slowly as tolerated to low residue. Can add fiber back in when her symptoms have completely resolved -no indication to repeat colonoscopy as pt just had one -ok to continue miralax as needed -pt to update on symptoms next week Author Jie Dave [facility] 2024 5:52pmAfedhruv NAD. Exam concerning for pneumonia. Offered CXR, patient agreeable, obtained in office with hx of CLL. Per radiology, However discussed with patient that given exam and progression of sx will continue to treat for CAP, advised clear findings on CXR can potentially lag from onset of pneumonia symptoms. Pt was given dose of IM dexamethasone in office, she prefers to avoid PO given GI upset, had tolerated IM steroids in past. Patient also reports hx of several atb causing GI upset and wants to avoid if possible. Rx for doxycycline sent, advised to take with food to prevent GI upset, she is requesting liquid as she has hard time swallowing pills. She already takes daily probiotic. Continue albuterol neb tx as needed. Rx for guaifenesin and Tessalon Perles sent, advised to only take Tessalon Perles as needed for rest, encouraged coughing to prevent worsening congestion. Push fluids and rest. OTC Tylenol as needed for aches/fever. F/U in 2-3 days if no improvement. Advised if unable to get in touch with PCP [place] to call me here at , may need to add secondary atb. Advised if unable to tolerate PO atb may need to consider tx with IM rocephin. Immediate eval by ER if sx worsen or develop warning s/sx as discussed. Patient education printed and provided. Patient verbalizes understanding and is agreeable to treatment plan. Future Tests Future scheduled test information is unavailable Pending Tests Test Name Ordered Date Scheduled Date XR chest 2V* March 12, 2025 8:51am Future Visits Future appointment information is unavailable Future Procedures Future procedure information is unavailable Future Medications Future medication information is unavailable Patient Instructions Instruction Admit Date Clear liquid diet Diverticulitis - Discharge instructionsSeptember 2024 10:19amPneumonia in adults - Discharge instructionsOctober 2024 2:07pm
--- OUTSIDE RECORDS SUMMARY | 2025-03-12 09:09 | XMS_ITS | Encounter Summary ---
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 Name Role Phone Arsen Winn MD Primary Care Provider Source Comments In the event this information is protected by the Federal Confidentiality of Alcohol and Drug AbusePatient Records regulations: The Federal rules restrict any use of the information to criminally investigate or prosecute any alcohol or drug abuse patient.[facility] Encounter Details DateTypeDepartmentCare Team (Latest Contact Info)Ogslgelwyot90/03/2025Travel Social History Tobacco UseTypesPacks/DayYears UsedDateSmoking Tobacco: NeverSmokeless Tobacco: NeverAlcohol UseStandard Drinks/WeekCommentsNot Currently0 (1 standard drink = 0.6 oz pure alcohol)one drink per monthOverall Financial Resource Strain (CARDIA)AnswerDate RecordedHow hard is it for you to pay for the very basics like food, housing, medical care, and heating?Not hard at all3PHQ-2 AnswerDate RecordedPHQ-2 fvyup21404/30/2024Hunger Vital SignAnswerDate Recorded Within the past 12 [...] RecordedNational Score (1-100), lower number is lower fxig519508/31/2022State Score (1-10), lower number is lower ndvv659ata from: https://www.neighborhoodatlas.medicine.[facility].edu/. Last address used for [address] [facility]08/31/2022CommentsNoSex and Gender InformationValueDate RecordedSex Assigned at EgztsUhvefv40/22/2020 12:31 AM EDT Legal SgxZzcmkl81/02/2012 9:32 AM ESTGender DpbgglsoWrbqgy15/22/2020 12:31 AM EDTSexual EkytdykvxabNuoxbkny06/22/2020 12:31 AM EDTOccupationIndustryJob Start DateJob End DateCleansNot on fileNot on fileNot on filedocumented as of this encounter Functional Status * Are you deaf or do you have serious difficulty hearing?AnswerDate of BypjntarzpHeidqxLs81/07/2023 1:17 PM Maria Esther Castorena RN * Are you blind or do you have serious difficulty seeing, even when wearing glasses?AnswerDate of ErlewsejxpKsfywrVm44/07/2023 1:17 PM Maria Esther Castorena RN * Do you have serious difficulty walking or climbing stairs?AnswerDate of MzzcwcdgyfZynfrsAs31/07/2023 1:17 PM Maria Esther Castorena RN * Do you have difficulty dressing or bathing?AnswerDate of AssessmentAuthorNo 09/02/2022 1:17 PM Maria Esther Castorena RN * Because of a physical, mental, or emotional condition, do you have difficulty doing errands alone such as visiting a doctor's office or shopping?AnswerDate of RniohvojocKxsxqyXb86/07/2023 1:17 PM Maria Esther Castorena RN documented as of this encounter Mental Status * Because of a physical, mental, or emotional condition, do you have serious difficulty concentrating, remembering, or making decisions?AnswerEntry Date DetsfgPb35/24/2022 5:08 PM Shivani Lopez RN documented in this encounter Plan of Treatment DateTypeDepartmentCare Team (Latest Contact Info)Tjcbgkihbxt83/04/2026 2:45 PM EDTOffice Visit [facility] [address] [place] [address] [place] [address] 6 month lab02/28/2026 2:45 PM ESTOffice Visit [facility] [address] [place] [address] [place] [address] LABS02/28/2026 3:00 PM ESTVisit (SP) Office Hematology/Oncology [address] [facility] [place] [address] Sanjana Beard APRN.[employer] [address] [address] 1 year follow up with labsdocumented as of this encounter Visit Diagnoses Not on filedocumented in this encounter Care Teams Team MemberRelationshipSpecialtyStart DateEnd Date Arsen Winn MD [address] [place] [address] PCP - GeneralFamily Medicine07/01/19documented as of this encounter
--- OUTSIDE RECORDS SUMMARY | 2025-03-12 09:09 | XMS_ITS | Clinical Summary ---
Author Organization [facility] Address [address] [place] [address] Care Team Providers Care Belt Tender Name Role Phone Audrey Wilkinson LEEANNE Unavailable Susannah Mcgill INTERNET MARKETING COORDINATOR Primary Care Provider Allergies Active AllergyReactionsCriticalityNoted LzowMmorclxxEkzxkqlsiqmcl77/22/2008 Makes pt. feel shaky/rapid heart rate AmoxicillinOther,Iscjkls4402/12/20211373Cdvwcfzthkvb98/28/2005 Other Reaction(s): Vomiting possible hives Erythromycin Base02/12/2021 Other Reaction(s): Vomiting, rash Mnuadwsnywof95/17/2021 Other Reaction(s): nausea, dizziness, headache, Other: See Comments TxwnlLqtqfavr17/28/6339Jnyhqhtocd62/13/2023 Other Reaction(s): Vomiting Meperidine Hcl02/12/2021 Other Reaction(s): Vomitting Nirmatrelvir-RitonavirGI ywpjrmxflalXxsqsz28/18/0341Ymhjgifvmn17/28/2022 Other Reaction(s): GI Upset Fqhzafsa14/24/2014 Other Reaction(s): Vomiting Wound Dressing Pvnakcvw03/28/2007 skin irritation Medications MedicationSigDispense QuantityRefillsLast FilledStart DateEnd DateStatus albuterol HFA 90 mcg/act inhaler Inhale 1 puff every 6 (six) hours if needed for wheezing or shortness of breath 08/01/2023ctive thyroid (INTERNET MARKETING COORDINATOR Thyroid) 15 MG tablet Indications:ESS (euthyroid sick syndrome),Acquired hypothyroidismTake 2 tablets in the AM and 1 tablet in the PM 270 tablet ctive traZODone (Desyrel) 100 MG tablet Indications:Seasonal affective disorderTake 1 tablet (100 mg) by mouth at bedtime 90 tablet ctive dicyclomine (Bentyl) 10 MG capsule Take 10 mg by mouth in the morning and 10 mg before bedtime.5Active hyoscyamine (Anaspaz,Levsin) 0.125 MG tablet Take 0.125 mg by mouth every 8 (eight) hours if irckzu535Active estradiol (Estrace) 0.1 MG/GM vaginal cream Indications:Atrophy of vaginaInsert 1 g into the vagina 2 (two) times a week 42.5 g 5001/14/2026ctive Active Problems ProblemNoted DateDiagnosed DateChronic cgnjrve2402/20/2024Non morbid obesity due to excess voleatgk14/24/2024lantar axmsjejum23/28/2023Irritable bowel syndrome with both constipation and hkeieaqo52/27/2023Sigmoid cnxsyseppowvhh28/27/2023LL (chronic lymphocytic leukemia)04/25/20221233Hkdedmpbyys30/22/2022ervical spine hixefojzkta75/09/2021Hx of fbptnsniuvjb92/09/2021tage 2 chronic kidney disease 06/07/2020Transfusion of blood product refused for faith pdyvjt4706/07/2020 Atrophy of hmuixi4002/24/2020Mild intermittent asthma without complication 12/31/2019Other hgxepds6009/07/2019ESS (euthyroid sick syndrome)07/29/2018Allergy to food02/10/2018NASH (nonalcoholic steatohepatitis)02/04/2018Gastroesophageal reflux disease with dtceyxgfpzs08/14/2018Acquired hvroyyhbcrtacx62/22/2018 Menopausal ziiibica52/17/2018POTS (postural orthostatic tachycardia syndrome) 07/11/2017Seasonal affective /15/2018Lower urinary tract symptoms (LUTS)03/19/2016Complex renal cyst04/06/2014 Resolved Problems ProblemNoted DateDiagnosed DateResolved SiiiYsbywk67/20/202312/cute rolcktcz49/01/2023Fluttering heart/07/2022Frequency of zapxylwpppc17Unspecified disturbances of skin sensation lass 1 jbuxqhi05Left flank pain08/31/2022 01/30/2023Weakness of pelvic floorMalnutrition of mild degree (HHS-HCC)andemiaLeft lower quadrant abdominal painiverticulitis of sigmoid colon 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 without perforation or mfpkmgb59iverticular disease of colon 3416Bzccwcfmwhxnvdmtxnet38/09/202110/04/2023Cardiac arrhythmia onstipation by delayed colonic jyrkwft92 Sick-euthyroid vxjpsxnh74hronic fatigue ynoxwmsr20/14/2018 02/20/2024Other chronic painalcific tendinitis of right nufafatu88cute xjcslgifcxrogn70UTI (urinary tract infection)elvic floor dysfunction in ihtgdc3309/13/2017 02/05/2023Fecal pzpspty56Right flank pain Weak urinary bzumwr18Near bcbhzhc34bnormal wtibthus33Urethral iieupsohi82Microhematuria Recurrent UTIizziness02/20/2012 01/30/2023Extrinsic phbyrt58 Encounters DateTypeDepartmentCare QxqhCbfgrqqhpwd44/04/2025bstract [facility] [place] [facility] [address] [facility] [address] [place] [address] Arsen Winn MD 01/13/2025Telephone [facility] [place] [facility] [address] [place] [id number] Ashley Terrell LPN from Last 3 Months Immunizations ImmunizationAdministration DatesNext DueInfluenza, injectable, MDCK, preservative free, taibcrnfyaap58/15/2445Bsca25/21/2024 Family History Medical HistoryRelationNameCommentsNo Known ProblemsBrotherCrohn's diseaseChild POTSChildCancerFatherWillardHearing lossFatherWillardHeart diseaseFatherWillard Breast cancerFather's SisterFayeArthritisMotherSandraAutoimmune diseaseMother SandrahepatitisGoutMotherSandraHepatitisMotherSandraOsteoarthritisMotherSandra POTSMotherSandraGER diseaseSiblingHyperlipidemiaSiblingNo Known ProblemsSister MelanomaNeg HxRelationNameStatusCommentsBrother4 brothersChildAliveDaughterAlive 1 daughterFatherWillardAliveFather's SisterFayeMotherSandraAliveSiblingSister4 sistersSonAlive1 son Social History Tobacco UseTypesPacks/DayYears UsedDateSmoking Tobacco: NeverSmokeless Tobacco: Never Tobacco Cessation:Counseling Given: Yes Alcohol UseStandard Drinks/WeekCommentsNever0 (1 standard drink = 0.6 oz pure alcohol)Caffeine intake : 1-2 cups per day ntoL7495 Health LiteracyAnswerDate RecordedHow often do you need to have someone help you when you read instructions, pamphlets, or other written material from your doctor or pharmacy? Qivhbp8704/01/2024Humiliation, Afraid, Rape, and Kick questionnaireAnswerDate RecordedWithin the last year, have you been afraid of your partner or ex-partner?No04/01/2024Within the last year, have you been humiliated or emotionally abused in other ways by your partner or ex-partner?No04/01/2024 Within the last year, have you been kicked, hit, slapped, or otherwise physically hurt by your partner or ex-partner?No04/01/2024Within the last year, have you been raped or forced to have any kind of sexual activity by your part ner or ex-partner?No04/01/2024Social Connection and Isolation PanelAnswerDate RecordedIn a typical week, how many times do you talk on the phone with family, friends, or neighbors?More than three times a week04/01/2024How often do you get together with friends or relatives?More than three times a week04/01/2024How often do you attend sikh or faith services?More than 4 times per year 04/01/2024o you belong to any clubs or organizations such as sikh groups, unions, fraternal or athletic groups, or school groups?Yes04/01/2024How often do you attend meetings of the clubs or organizations you belong to?More than 4 times per year04/01/2024re you , , , , never , or living with a partner?Vqbbyqe7204/01/2024UDIT-CAnswerDate RecordedQ1: How often do you have a drink containing alcohol?Never04/01/2024Q2: How many drinks containing alcohol do you have on a typical day when you are drinking? Patient does not drink04/01/2024Q3: How often do you have six or more drinks on one occasion?Never04/01/2024Overall Financial Resource Strain (CARDIA)AnswerDate RecordedHow hard is it for you to pay for the very basics like food, housing, medical care, and heating?Not hard at all04/01/2024HQ-2AnswerDate Recorded Patient Health Questionnaire-2 Fmpyi63006/02/2023[facility] [place] of Occupational Health - Occupational Stress QuestionnaireAnswerDate RecordedDo you feel stress - tense, restless, nervous, or anxious, or unable to sleep at night because your mind is troubled all the time - these days?Not at all04/01/2024Exercise Vital SignAnswerDate RecordedOn average, how many days per week do you engage in moderate to strenuous exercise (like a brisk walk)?2 days04/01/2024On average, how many minutes do you engage in exercise at this level?30 min04/01/2024Hunger Vital SignAnswerDate RecordedWithin the past 12 months, you worried that your food would run out before you got the money to buymore.Never true04/01/2024 Within the past 12 months, the food you bought just didn't last and you didn't have money to get more.Never true04/01/2024RAPARE - TransportationAnswerDate RecordedIn the past 12 months, has lack of transportation kept you from medical appointments or from getting medications?No04/01/2024In the past 12 months, has lack of transportation kept you from meetings, work, or from getting things needed for daily living?No04/01/2024Housing Stability Vital SignAnswerDate RecordedIn the last 12 months, was there a time when you were not able to pay the mortgage or rent on time?No02/05/2023In the last 12 months, how many places have you lived?In the last 12 months, was there a time when you did not have a steady place to sleep or slept in [facility] (including now)?No 02/05/2023Housing Stability Vital SignAnswerDate RecordedIn the last 12 months, was there a time when you were not able to pay the mortgage or rent on time?No 04/01/2024In the past 12 months, how many times have you moved where you were living?t any time in the past 12 months, were you homeless or living in a [facility] (including now)?No04/01/2024EducationAnswerDate RecordedWhat is the highest level of school you have completed or the highest degree you have received?High school /31/2023CommentsNoSex and Gender InformationValueDate RecordedSex Assigned at BirthNot on fileLegal SexFemale 07/11/2022 7:13 PM EDTGender VyqozoidYvavdn99/15/2023 7:13 PM EDTSexual OrientationNot on fileOccupationIndustryJob Start DateJob End DateRetiredNot on fileNot on fileNot on file Last Filed Vital Signs Vital SignReadingTime TakenCommentsBlood Ybuoyqzi449/7210 3:21 PM EDT Eqrgw414502/04/2024 3:21 PM AOFMhmueqlvqeg54.6 ??C (97.8 ??F)12/25/2023 1:55 PM EDTRespiratory Rate--Oxygen Neaalccfer06%02/04/2024 3:21 PM EDTInhaled Oxygen Concentration--Xspebl16 kg (167 lb 8 oz)02/04/2024 3:21 PM LVHKqglvl024.5 cm (5' 2 )02/04/2024 3:21 PM EDTBody Mass Index30.6402/04/2024 3:21 PM EDT Plan of Treatment DateTypeDepartmentCare Team (Latest Contact Info)Mswoslqqnyr72/16/2026 9:15 AM ESTOffice Visit TAYA [facility] [address] [place] [address] Yuki Michaels DO [address] [place] [address] 08/31/2025 1:20 PM EDTOffice Visit [facility] [address] [place] [address] Yoselin Alexandra MD [address] [place] [address] Health MaintenanceDue DateLast DoneCommentsCT Qddyuktsegdz1962FIT-DNA 1962FIT1962FOBT1962 7237Vklmhqzhhmvpy1962ap Smear1983 Bvylzobfq92/09/71282506/07/2023, 03/20/2022, 07/25/2020, Additional history exists COVID-19 Vaccine ( season), 05/05/2023, 03/26/2021, Additional history existsInfluenza Vaccine (#1)/ Nhoapnuhkrn04, 02/28/2015Colorectal Cancer Cuswayjfi37/02/2025 Cervical Cancer Ecquzfsxt21/26/2029HPV/Gwetfc72, 02/24/2020 Pneumococcal Vaccine: Pediatrics (0 to 5 Years) and At-Risk Patients (6 to 64 Years)Aged OutNo longer eligible based on patient's age to complete this topic Procedures Procedure NamePriorityDate/TimeAssociated DiagnosisCommentsTHINPREP IMAGING PAP W/REFL HPV MRNA E6/S8Qbcfits05/26/2024 3:52 PM EDT Encounter for screening for malignant neoplasm of vagina BI MAMMOGRAM SCREENING TOMOSYNTHESIS YXDROVQLCZiatbvu55/09/2024 1:37 PM EST Encounter for screening mammogram for malignant neoplasm of breast WRWXJEDSHVDPxmwmok97/02/2015 12:00 PM EST from Last 3 Months or Most Recently Relevant to Health Maintenance Results * THINPREP IMAGING PAP W/REFL HPV MRNA E6/E7 (10/23/2023 3:52 PM EDT)Component ValueRef RangeTest MethodAnalysis TimePerformed AtPathologist Signature CLINICAL INFORMATIONQUESTComment:None givenLMPQUESTComment:HYSTERECTOMYPREV. PAPQUESTComment:NONE GIVENPREV. BXQUESTComment:NONE GIVENSOURCEQUESTComment: None givenSTATEMENT OF ADEQUACYQUESTComment:SATISFACTORY FOR EVALUATION INTERPRETATION/RESULTQUESTComment: Cytology Results: Negative for intraepithelial lesion or malignancy. COMMENTQUESTComment: This Pap test has been evaluated with computer assisted technology. CYTOTECHNOLOGISTQUESTComment: [facility], CT(ASCP) CT Screening Location: [facility] [address] ??[address] REVIEW CYTOTECHNOLOGISTQUESTComment: RE[facility]UNDO SCT(ASCP) CT Screening Location: [facility] [address] [address]. (ALWAYS MESSAGE)QUESTComment: EXPLANATORY NOTE: The Pap is a screening test for cervical cancer. It is not a diagnostic test and is subject to false negative and false positive results. It is most reliable when a satisfactory sample, regularly obtained, is submitted with relevant clinical findings and history, and when the Pap result is evaluated along with historic and current clinical information. Specimen (Source)Anatomical Location / LateralityCollection Method / Volume Collection TimeReceived TimeSwabVaginal structure / Wncxwyy8810/23/2023 3:52 PM EDT10/24/2023 3:59 AM EDT Narrative Resulting Agency Comment Performing Organization Information ?Site ID: [id number] ?Name: [facility] ?Address: [address] [place] [address], [address] [place] [id number] ?Director: Terrell Bean MD Authorizing ProviderResult TypeResult StatusKatpatrick Michaels DOL CYTOLOGY ORDERABLESFinal ResultPerforming OrganizationAddressCity/State/ZIP CodePhone Number QUEST * Bilateral screening mammogram with tomosynthesis (06/07/2023 1:37 PM EST) Anatomical RegionLateralityModalityBreastBilateralMammographySpecimen (Source) Anatomical Location / LateralityCollection Method / VolumeCollection Time Received Time06/10/2023 9:33 AM EST Impressions 06/10/2023 10:04 AM EST BIRADS 2 - Benign Recommended follow-up: Routine Screening Mamm Board Certified Radiologists. ??Accredited by the ACR and FDA. MAMMOGRAPHY IS VERY IMPORTANT TO YOUR HEALTH. ??THE [place] [employer]IET[employer] GUIDELINES RECOMMEND THAT WOMEN 40 YEARS OF AGE AND OLDER SHOULD HAVE A MAMMOGRAM EVERY YEAR. A REMINDER LETTER WILL BE SENT AT THE APPROPRIATE TIME. ??THIS FACILITY UTILIZES A REMINDER SYSTEM TO ENSURE ALL PATIENTS RECEIVE REMINDER NOTIFICATIONS AT THE APPROPRIATE TIME BASED ON THE RECOMMENDATIONS OF THIS EXAM. THIS INCLUDES REMINDERS FOR ROUTINE SCREENING MAMMOGRAMS, DIAGNOSTIC MAMMOGRAMSIN WHICH THE PATIENT IS ASKED TO RETURN FOR ADDITIONAL VIEWS, OR OTHER BREAST IMAGING INTERVENTIONSWHEN APPROPRIATE. THE PATIENT WILL BE PLACED IN THE APPROPRIATE REMINDER SYSTEM INCLUDING A REMINDER AT THE APPROPRIATE TIME FOR ANY PENDING ADDITIONAL VIEWS. ELECTRONICALLY SIGNED BY: Gavin Garcia MD Narrative 06/10/2023 10:04 AM EST EXAMINATION: BI MAMMOGRAM SCREENING TOMOSYNTHESIS BILATERAL CLINICAL HISTORY: ??Screening for breast cancer COMPARISON: Prior from 2021. RESULT: 3-D tomosynthesis imaging of the bilateral breasts was performed. Density: Scattered fibroglandular density [2] There are no suspicious masses or asymmetries, areas of architectural distortion or suspicious areas of microcalcifications. ?? Stable asymmetries. Procedure Note Gavin Garcia MD - 06/10/2023 EXAMINATION: BI MAMMOGRAM SCREENING TOMOSYNTHESIS BILATERAL CLINICAL HISTORY: Screening for breast cancer COMPARISON: Prior from 2021. RESULT: 3-D tomosynthesis imaging of the bilateral breasts was performed. Density: Scattered fibroglandular density [2] There are no suspicious masses or asymmetries, areas of architecturaldistortion or suspicious areas of microcalcifications. Stableasymmetries. IMPRESSION: BIRADS 2 - Benign Recommended follow-up: Routine Screening Mamm Board Certified Radiologists. Accredited by the ACR and FDA. MAMMOGRAPHY IS VERY IMPORTANT TO YOUR HEALTH. THE [place] [employer] SOC[employer] GUIDELINES RECOMMEND THAT WOMEN 40 YEARS OF AGE AND OLDER SHOULD HAVE AMAMMOGRAM EVERY YEAR. A REMINDER LETTER WILL BE SENT AT THE APPROPRIATE TIME. THIS FACILITYUTILIZES A REMINDER SYSTEM TO ENSURE ALL PATIENTS RECEIVE REMINDERNOTIFICATIONS AT THE APPROPRIATE TIME BASED ON THE RECOMMENDATIONS OF THISEXAM. THIS INCLUDES REMINDERS FOR ROUTINE SCREENING MAMMOGRAMS, DIAGNOSTICMAMMOGRAMS IN WHICH THE PATIENT IS ASKED TO RETURN FOR ADDITIONAL VIEWS,OR OTHER BREAST IMAGING INTERVENTIONS WHEN APPROPRIATE. THE PATIENT WILLBE PLACED IN THE APPROPRIATE REMINDER SYSTEM INCLUDING A REMINDER AT THEAPPROPRIATE TIME FOR ANY PENDING ADDITIONAL VIEWS. ELECTRONICALLY SIGNED BY: Gavin Garcia MD Authorizing ProviderResult TypeResult Mely Winn MDIMG BI PROCEDURES Final Result * Colonoscopy (02/28/2015 12:00 PM EST)Anatomical RegionLateralityModality EndoscopySpecimen (Source)Anatomical Location / LateralityCollection Method / VolumeCollection TimeReceived Time02/28/2015 12:00 PM EST Narrative 02/28/2015 12:00 PM EST PERFORMED AT [facility] LOCATION:[id number] Procedure Note CONVERSION, GENERIC - 09/13/2022 PERFORMED AT [facility] LOCATION:[id number] Authorizing ProviderResult TypeResult StatusArsen Winn MDENDOSCOPY PROCEDURE ORDERABLESFinal Result from Last 3 Months or Most Recently Relevant to Health Maintenance Insurance Advance Directives TypeDate RecordedPatient RepresentativeExplanationPower of Qydfimbu05/18/2023 1:39 [id number] Power Of Surfboard Designer Care Teams Team MemberRelationshipSpecialtyStart DateEnd Date Susannah Mcgill NP [address] [facility] [place] [address] PCP - GeneralFamily Medicine09/01/24 Audrey Wilkinson LPN [address] [place] [address] Licensed Practical NurseFamily Medicine10/23/22
--- OUTSIDE RECORDS SUMMARY | 2025-03-12 09:09 | XMS_ITS | Encounter Summary ---
Author Organization [facility] Address [address] [place] [address] Care Team Providers Care Sole Layer Hand Name Role Phone Audrey Wilkinson EPIC TRAINER Unavailable Susannah Mcgill FOUNDRY METALLURGIST Primary Care Provider Encounter Details DateTypeDepartmentCare Team (Latest Contact Info)Xxiouoiiwtn23/04/2025bstract [facility] [address] [facility] [address] [place] [address] Arsen Winn MD [address] [facility] [address] [place] [address] Social History Tobacco UseTypesPacks/DayYears UsedDateSmoking Tobacco: NeverSmokeless Tobacco: NeverAlcohol UseStandard Drinks/WeekCommentsNever0 (1 standard drink = 0.6 oz pure alcohol)Caffeine intake : 1-2 cups per day [id number] Health LiteracyAnswer Date RecordedHow often do you need to have someone help you when you read instructions, pamphlets, or other written material from your doctor or pharmacy? Kcjurb1804/01/2024Humiliation, Afraid, Rape, and Kick questionnaireAnswerDate RecordedWithin the [...] times a week04/01/2024How often do you attend hinduism or mosque services?More than 4 times per year 04/01/2024o you belong to any clubs or organizations such as hinduism groups, unions, fraternal or athletic groups, or school groups?Yes04/01/2024How often do you attend meetings of the clubs or organizations you belong to?More than 4 times per year04/01/2024re you , , , , never , or living with a partner?Sojiljm9704/01/2024UDIT-CAnswerDate RecordedQ1: How often do you have a [...] hard at all04/01/2024HQ-2AnswerDate Recorded Patient Health Questionnaire-2 Uzezc54106/02/2023[facility] [place] of Occupational Health - Occupational Stress QuestionnaireAnswerDate [...] steady place to sleep or slept in [facility] (including now)?No 02/05/2023Housing Stability Vital SignAnswerDate RecordedIn the last 12 months, was there a time when you were not able to pay the mortgage or rent on time?No 04/01/2024In the past 12 months, how many times have you moved where you were living?t any time in the past 12 months, were you homeless or living in a nursing home (including now)?No04/01/2024EducationAnswerDate RecordedWhat is the highest level of school you have completed or the highest degree you have received?High school qiwfcgbj52/31/2023CommentsNoSex and Gender InformationValueDate RecordedSex Assigned at BirthNot on fileLegal SexFemale 07/11/2022 7:13 PM EDTGender CdckhuklPqxoqz12/15/2023 7:13 PM EDTSexual OrientationNot on fileOccupationIndustryJob Start DateJob End DateRetiredNot on fileNot on fileNot on filedocumented as of this encounter Plan of Treatment DateTypeDepartmentCare Team (Latest Contact Info)Hcyecelufwt09/16/2026 9:15 AM ESTOffice Visit [facility] [place] [facility] [address] [place] [address] Yuki Michaels DO [address] [place] [address] 08/31/2025 1:20 PM EDTOffice Visit [facility] [address] [place] [address] Yoselin Alexandra MD [address] [place] [address] documented as of this encounter Visit Diagnoses Not on filedocumented in this encounter Care Teams Team MemberRelationshipSpecialtyStart DateEnd Date Susannah Mcgill NP [address] [place] [address] [place] [address] PCP - GeneralFamily Medicine09/01/24 Audrey Wilkinson LPN [address] [place] [address] Licensed Practical NurseFamily Medicine10/23/22documented as of this encounter
--- OUTSIDE RECORDS SUMMARY | 2025-03-12 09:09 | XMS_ITS | Clinical Summary ---
Author Organization [facility] Address [address] [place] [address] Care Team Providers Care Cae Engineer Name Role Phone Arsen Winn MD Primary Care Provider Allergies Active AllergyReactionsCriticalityNoted DateCommentsAdhesive Tape (Rosins) 12/24/2006 skin irritation AmoxicillinOther: See Pmiikloz20/17/2021iprofloxacinDiarrhea,GI Upset,Mental Status Change,Abfczwmc42/28/0873KasxrpqppsNmzyhndhXxvjfwoiernoBqcxjgck82/28/2005 possible hives HzaymNjxtsztt29/28/2022EscitalopramOther: See Yejstmlx14/17/2021rednisoneGI Upset03/26/20229788YpjduovjLcyksmqk51/24/1164Rvvestpurzgzz17/22/2008 Makes pt. feel shaky/rapid heart rate Medications MedicationSigDispense QuantityRefillsLast FilledStart DateEnd DateStatus OMEGA-3 FATTY ACIDS ORAL Take 1,000 mg by mouth once daily.04/29/2008ctive Calcium Carbonate-Vitamin D3 180-5,000 mg-unit tab Take by mouth every other day.04/29/2008ctive traZODone (DESYREL) 100 mg tablet 02/27/2022ctive estradiol (ESTRACE) 0.01 % (0.1 mg/gram) vaginal cream Use 1 g vaginally two times a week. 42.5 g ctive metroNIDAZOLE 0.75 % cream Apply 1 application to affected area as needed.Discontinued liothyronine (CYTOMEL) 5 mcg tablet Take 5 mcg by mouth twice daily.Discontinued hyoscyamine (LEVSIN) 0.125 mg tablet Take 1 tablet by mouth every 8 hours as needed for up to 7 days. 15 tablet Discontinued Active Problems ProblemNoted DateDiagnosed DypeMgecplkzbq38/25/2023Right ankle pain02/20/2023 Enthesopathy of foot10/24/2022lantar sassoucrx94/28/2023Pain of right heel 10/24/2022Left flank pain08/31/2022Obesity, Class I, BMI 30-34.9008/31/2022 Iwsmbmfvaeoqsy13/05/2023LL (chronic lymphocytic leukemia)04/25/2022Weakness of pelvic floor02/16/2022elvic floor mjxtjiw0702/16/2022Malnutrition of mild degree 06/21/20211309Jfxcxjne41/22/2022Diverticulitis of sigmoid colon06/20/2021Left lower quadrant abdominal pain06/20/20217772Ztuvbbbxntx26/22/2022Calcific tendinitis of right fatercvo56/29/2018UTI (urinary tract infection)12/18/2017Hypothyroidism 12/18/2017Acute cippnhedntaqsl75/22/2018Pelvic floor dysfunction in female 09/13/2017POTS (postural orthostatic tachycardia syndrome)07/11/2017Fecal yggsbgv8707/11/2017Seasonal affective vjpcackc43/15/2018Right flank pain03/20/2017 Weak urinary upnqsl5210/05/2016Lower urinary tract symptoms (LUTS)03/19/2016Near jyklgdz3003/19/2016Abnormal epzfmihr61/17/2016Urethral stricture unspecified 11/03/2014Recurrent UTI04/06/2014Complex renal cyst04/06/2014Microhematuria 04/06/20147284Vvyzfmqal89/24/2012Headache(784.0)02/20/2012Extrinsic asthma, kphxgsojkxb68/31/2006llergic hacfbkfq82/31/2006 Resolved Problems ProblemNoted DateDiagnosed DateResolved DateAcute low back pain03/20/2017 07/11/2017 Encounters DateTypeDepartmentCare HyeuUvqktznfsid10/03/2025 3:00 PM ESTVisit (SP) Office Hematology/Oncology [address] [place] [address] [place] [address] Sanjana Madden APRN.SUPERVISOR INSPECTION AND TESTING CLL (chronic lymphocytic leukemia) (HCC) (Primary Dx); History of jewfgllcj57/03/5443Ecnfje08/27/2061Zvlaak08/27/2025Telephone Hematology/Oncology [address] [place] [address] [place] [address] Brooke Martinez RN Lab Nlidgs3201/10/2025 Patient Msg Hematology/Oncology [address] [place] [address] Aki Segovia MD Appointment Cancellation Zdejjxe0701/08/2025 1:15 PM EDTOT/PT/Speech Visit Physical Therapy [address] [facility] [place] [address] Susannah Anderson PT Pelvic floor dysfunction in female (Primary Dx)01/08/2025 Get Medical Advice Urology [address] [place] [address] Yoselin Hopkins MD Pelvic Yoysqi1001/08/2025Refill Urology [address] [place] [address] Yoselin Hopkins MD Refill Efjhpuy7501/08/20253700Rtrytt57/10/2025Travelfrom Last 3 Months Immunizations ImmunizationAdministration DatesNext Dueinfluenza (ccIIV4) vaccine, age 6+ mo, quadrivalent, PF (FLUCELVAX)04/12/2022 Family History Medical HistoryRelationCommentsIschemic Heart DiseaseFatherstentlipidsFather diverticulitisMaternal GrandmotherAnkylosing spondylitisMotherCataractMotherPOTS MotherIschemic Heart DiseasePaternal Grandfatherdied of MN in 50's.Mary Kay Danlos SyndromeSister 1ScoliosisSister 2ScoliosisSister 3POTSSister 4Crohn's DiseaseSon RelationStatusCommentsFatherMaternal GrandmotherDeceasedMotherPaternal GrandfatherDeceasedSister 1Sister 2Sister 3Sister 4SonAlive Social History Tobacco UseTypesPacks/DayYears UsedDateSmoking Tobacco: NeverSmokeless Tobacco: Never Tobacco Cessation:Counseling Given: Not Answered Alcohol UseStandard Drinks/WeekCommentsNot Currently0 (1 standard drink = 0.6 oz pure alcohol)one drink per monthOverall Financial Resource Strain (CARDIA)Answer Date RecordedHow hard is it for you to pay for the very basics like food, housing, medical care, and heating?Not hard at all08/31/2022HQ-2AnswerDate RecordedPHQ-2 igsgk87904/30/2024Hunger Vital SignAnswerDate RecordedWithin the past 12 months, [...] RecordedNational Score (1-100), lower number is lower dcue590108/31/2022State Score (1-10), lower number is lower nbil837ata from: https://www.neighborhoodatlas.medicine.[facility].edu/. Last address used for [address]CommentsNoSex and Gender InformationValueDate RecordedSex Assigned at GtjfxTxglqu21/22/2020 12:31 AM EDT Legal LsoKrtbpi77/02/2012 9:32 AM ESTGender QmdylevsWlorjm79/22/2020 12:31 AM EDTSexual GzpddcgkgadThfcfisp60/22/2020 12:31 AM EDTOccupationIndustryJob Start DateJob End DateCleansNot on fileNot on fileNot on file Last Filed Vital Signs Vital SignReadingTime TakenCommentsBlood Xfhclkew047/7103/01/2025 2:59 PM EST Cbqnv393903/01/2025 2:59 PM DJJGytrqprjchm38.6 ??C (97.8 ??F)03/01/2025 2:59 PM ESTRespiratory Jgch088505/01/2024 2:59 PM ESTOxygen Bshlqjcmdi21%03/01/2025 2:59 PM ESTInhaled Oxygen Concentration--Vksoau31.1 kg (174 lb 6.1 oz)03/01/2025 2:59 PM FNHFnmogf600.5 cm (5' 2 )08/10/2024 6:02 PM EDTBody Mass Index31.904 6:02 PM EDT Plan of Treatment DateTypeDepartmentCare Team (Latest Contact Info)Fmthbnnnqmf60/04/2026 2:45 PM EDTOffice Visit [facility] [address] [place] [address] 6 month lab02/28/2026 2:45 PM ESTOffice Visit [facility] [address] [address] LABS02/28/2026 3:00 PM ESTVisit (SP) Office Hematology/Oncology [address] [place] [address] Sanjana Madden APRN.SUPERVISOR INSPECTION AND TESTING [address] [place] [address] 1 year follow up with labsHealth MaintenanceDue DateLast DoneCommentsAnnual PCP Team Chronic Disease Visit1980Anxiety Iptgcfihz27/30/1980HIV Screening 1980Hepatitis C Mmycitdro10/30/1980CT Axmievdruwxi57/30/2007Cologuard (FIT-DNA)2007Fecal Occult Blood04/27/20075423Tjomacekvjyjz67/30/2007Lipid Omgpkzuor21 (Other)Pneumococcal Vaccine: 50+ (1 of 1 - PCV) 2012Shingrix Vaccine (1 of 2)2012Cervical Cancer Ydyynykrb70/16/2014 05/14/2008, 12/24/2006 (Other)RSV Vaccine (1 - Risk 60-74 years 1-dose series) 2022Mammogram Vgidssvgd53/09/493170/12/2023, 06/07/2023, 03/20/2022, Additional history existsCovid-19 Vaccine ( season)2024 05/05/2023, 01/13/2022, 03/26/2021, Additional history existsInfluenza Vaccine (#1)/1617Danntpsyuxm81/02/202511/05/2014, 02/28/2015, 02/28/2015 Colorectal Cancer Msowpojyl90/02/2025Diabetes Fvjrpolzj29/06/2024, 08/10/2024, 07/14/2024, Additional history existsDTaP,Tdap,Td Vaccine (2 - Td or Tdap) Procedures Procedure NamePriorityDate/TimeAssociated DiagnosisCommentsURIC ACID BLOOD Fzuuzjo5503/01/2025 2:48 PM EST CLL (chronic lymphocytic leukemia) (HCC) LD LACTATE LSTGPYJDfsgvub53/03/2025 2:48 PM EST CLL (chronic lymphocytic leukemia) (HCC) COMPREHENSIVE METABOLIC APCEHXajwzmm50/03/2025 2:48 PM EST CLL (chronic lymphocytic leukemia) (HCC) CBC + HNKRZvtatvr21/03/2025 2:48 PM EST CLL (chronic lymphocytic leukemia) (HCC) COLONOSCOPY - BFWDCJTKUX62/02/2015 9:35 AM EST HPV DNA ASSAY05/14/2008 9:30 AM EST from Last 3 Months or Most Recently Relevant to Health Maintenance Results * (ABNORMAL) LACTATE DEHYDROGENASE (03/01/2025 2:48 PM EST)ComponentValueRef RangeTest MethodAnalysis TimePerformed AtPathologist GfkpiqrlgWU558(H)135 - 214 U/L105/01/2024 3:20 PM ESTNORTMCLAREN THUMB REGION LABComment: Hemolysis present. The origin of the hemolysis, in vitro versus an in vivo hemolytic process, cannot be distinguished via this assay alone. In vitro hemolysis may lead to non-physiological (spurious)elevation in lactate dehydrogenase (LDH) results. The result should be interpreted in context of the clinical setting and other test results. Suggest reorder as clinically indicated. Specimen (Source)Anatomical Location / LateralityCollection Method / Volume Collection TimeReceived TimeBloodBLOOD SPECIMEN / UnknownVenipuncture / Unknown 03/01/2025 2:48 PM EST03/01/2025 2:48 PM EST Narrative Authorizing ProviderResult TypeResult StatusSanjana Madden APRN.CNPLABORATORYFinal ResultPerforming OrganizationAddressCity/State/ZIP CodePhone Number [facility] [address] [place] [address] * URIC ACID (03/01/2025 2:48 PM EST)ComponentValueRef RangeTest MethodAnalysis TimePerformed AtPathologist SignatureUric Acid6.42.5 - 6.6 mg/dL03/01/2025 3:20 PM ESTNORTMCLAREN THUMB REGION LABSpecimen (Source)Anatomical Location / LateralityCollection Method / VolumeCollection TimeReceived Time BloodBLOOD SPECIMEN / UnknownVenipuncture / Lquupvs2103/01/2025 2:48 PM EST 03/01/2025 2:48 PM EST Narrative Authorizing ProviderResult TypeResult StatusJaimee Kisha POLARITY TESTER.CNPLABORATORYFinal ResultPerforming OrganizationAddressCity/State/ZIP CodePhone Number [facility] [address] [place] [address] * COMPREHENSIVE METABOLIC PANEL (03/01/2025 2:48 PM EST)ComponentValueRef Range Test MethodAnalysis TimePerformed AtPathologist SignatureProtein, Total7.36.3 - 8.0 g/dL03/01/2025 3:20 PM ESTNOR[facility]COAST [facility] LABAlbumin 4.53.9 - 4.9 g/dL03/01/2025 3:20 PM ESTNORTKINDRED HOSPITALST [facility] Calcium, Total9.98.5 - 10.2 mg/dL03/01/2025 3:20 PM ESTNORTKINDRED HOSPITALST [facility] LABBilirubin, Total0.40.2 - 1.3 mg/dL03/01/2025 3:20 PM EST [facility] LABAlkaline Wcsgnqswzlw7910 - 123 U/L 03/01/2025 3:20 PM ESTNORTMCLAREN THUMB [facility] SXBWWL5052 - 35 U/L 03/01/2025 3:20 PM ESTNORTMCL[facility] ZYPFBT846 - 38 U/L 03/01/2025 3:20 PM ESTNORTMCL[facility]EN THUM[facility] REG[facility] FVQJcdyyjp9442 - 99 mg/dL03/01/2025 3:20 PM ESTRTMCLAREN THUMB REGION LABComment: The [place] Diabetes Association (ADA) provides guidance for cutoff values for fasting glucose andrandom glucose. The ADA defines fasting as no caloric intake for at least 8 hours. Fasting plasma glucose results between 100 to 125 mg/dL indicate increased risk for diabetes (prediabetes). Fasting plasma glucose results greater than or equal to 126 mg/dL meet the criteria for diagnosis of diabetes. In the absence of unequivocal hyperglycemia, results should be confirmed by repeat testing. In a patient with classic symptoms of hyperglycemia or hyperglycemic crisis, random plasma glucose results greater than or equal to 200 mg/dL meet the criteria for diagnosis of diabetes. Reference: Standards of Medical Care in Diabetes 2016, [place] Diabetes Association. Diabetes Care. 2016.39(Suppl 1). XTR798 - 21 mg/dL03/01/2025 3:20 PM [facility] Creatinine0.750.58 - 0.96 mg/dL03/01/2025 3:20 PM [facility] WXYQkldyj726038 - 144 mmol/L105/01/2024 3:20 PM [facility] LABPotassium4.73.7 - 5.1 mmol/L105/01/2024 3:20 PM [facility] VXXZjropngq24605 - 107 mmol/L105/01/2024 3:20 PM EST [facility] SHEPS61736 - 30 mmol/L105/01/2024 3:20 PM EST [facility] LABAnion Gap98 - 15 mmol/L105/01/2024 3:20 PM [facility] LABEstimated Glomerular Filtration Rate90 >=60 mL/min/1.73m 03/01/2025 3:20 PM [facility] LABComment:Estimated Glomerular Filtration Rate (eGFR) is calculated using the 2020 CKD-EPI creatinine equation. This equation utilizes serum creatinine, sex, and age as parameters. The creatinine assay has traceable calibration to isotope dilution- mass spectrometry. Refer to KDIGO guidelines for clinical interpretation. In patients with unstable renal function, e.g. those with acute kidney injury, the eGFRmay not accurately reflect actual GFR.Specimen (Source)Anatomical Location / LateralityCollection Method / VolumeCollection TimeReceived TimeBloodBLOOD SPECIMEN / UnknownVenipuncture / Pmwqgcr4503/01/2025 2:48 PM EST03/01/2025 2:48 PM EST Narrative Authorizing ProviderResult TypeResult StatusJaimee Kisha POLARITY TESTER.CNPLABORATORYFinal ResultPerforming OrganizationAddressCity/State/ZIP CodePhone Number [facility] [address] [place] [address] * (ABNORMAL) COMPLETE BLOOD COUNT AND DIFFERENTIAL (03/01/2025 2:48 PM EST) ComponentValueRef RangeTest MethodAnalysis TimePerformed AtPathologist XhgsbrzlkBJI21.00(H)3.70 - 11.00 k/uL03/02/2025 4:08 AM [facility] LABRBC4.733.90 - 5.20 m/uL03/02/2025 4:08 AM [facility] ZEGTodygeuyie57.611.5 - 15.5 g/dL03/02/2025 4:08 AM [facility] SSMWcrclxmjau95.636.0 - 46.0 %03/02/2025 4:08 AM [facility] YWYUVL87.280.0 - 100.0 fL 03/02/2025 4:08 AM [facility] PBZDYM33.926.0 - 34.0 pg03/02/2025 4:08 AM [facility] OBWPWBZ66.530.5 - 36.0 g/dL03/02/2025 4:08 AM [facility] LABRDW-CV12.7 11.5 - 15.0 %03/02/2025 4:08 AM [facility] LAB Platelet Chyim219659 - 400 k/uL03/02/2025 4:08 AM [facility] LABMPV9.99.0 - 12.7 fL03/02/2025 4:08 AM [facility] LABNRBC0.0/100 WBC03/02/2025 4:08 AM [facility] LABAbsolute nRBC<0.01<0.01 k/uL03/02/2025 4:08 AM [facility] Neutrophils %10.0%03/02/2025 4:08 AM [facility] LABAbs Neut (Segs + Bands)2.401.45 - 7.50 k/uL03/02/2025 4:08 AM [facility] LABLymphocytes %86.0%03/02/2025 4:08 AM [facility] LABAbs Lymph (Normal + Reactive)20.64(H)1.00 - 4.00 k/uL03/02/2025 4:08 AM [facility] LABMonocytes %2.0%03/02/2025 4:08 AM [facility] Abs Mono0.48<0.87 k/uL03/02/2025 4:08 AM [facility] LABEosin%2.0 %03/02/2025 4:08 AM [facility] LABAbs Eosin0.48(H)<0.46 k/uL 03/02/2025 4:08 AM [facility] LABBasophils %0.0%03/02/2025 4:08 AM [facility] LABAbs Baso0.00<0.11 k/uL03/02/2025 4:08 AM [facility] LABPlatelet AmjqsewrRjbqajtr21/04/2025 4:08 AM [facility] LABRed Cell MorphReviewed: ulmvladxhyuy78/04/2025 4:08 AM [facility] LABDiff ZstbElmmtu52/04/2025 4:08 AM [facility] LABSpecimen (Source)Anatomical Location / LateralityCollection Method / VolumeCollection TimeReceived TimeBloodBLOOD SPECIMEN / Unknown Venipuncture / Cjkdcer7003/01/2025 2:48 PM EST03/01/2025 2:48 PM EST Narrative [facility] - 03/02/2025 4:08 AM EST ANC=3.21 The following results were reported as preliminary values due to instrument flagging. Interpret with caution. Final results may vary. Results requested and read back by: Dylan MADDEN/DOMINICK/NCC/14:59\11.3.25\SJOHNSON This is an appended report. ??These results have been appended to a previously verified report. Authorizing ProviderResult TypeResult StatusJaimemauro Madden POLARITY TESTER.CNPLABORATORYFinal ResultPerforming OrganizationAddressCity/State/ZIP CodePhone Number [facility] [address] [place] [address], [facility] [address] [place] [id number] * COLONOSCOPY - DIAGNOSTIC (02/28/2015 9:35 AM EST)ComponentValueRef RangeTest MethodAnalysis TimePerformed AtPathologist SignatureTranscriptionLorain [facility] Gastrointestinal Endoscopy Patient Name: Antony Mercedes Procedure Date: 02/28/2015 9:35 AM Date of : 1960 Admit Type: Ambulatory Age: 54 Gender: Female Note Status: Finalized Procedure: ? Colonoscopy Indications: ? Screening for colorectal malignant neoplasm Providers: ? Chivo Antonio MD Patient Profile: ? Last Colonoscopy: none. The patient's first colonoscopy ? is today. Referring Physician: Medicines: ? Midazolam 5 mg IV, Fentanyl 200 micrograms IV Complications: ? No immediate complications. Requesting Provider: Procedure: ? Pre-Anesthesia Assessment: ? - Prior to the procedure, a History and Physical was ? performed, and patient medications and allergies were ? reviewed. The patient is competent. The risks and ? benefits of the procedure and the sedation options and ? risks were discussed with the patient. All questions ? were answered and informed consent was obtained. Patient ? identification and proposed procedure were verified by ? the physician, the nurse and the day porter in the ? pre-procedure area in the endoscopy suite. Airway ? Examination: normal oropharyngeal airway and neck ? mobility. Respiratory Examination: clear to ? auscultation. CV Examination: normal. Prophylactic ? Antibiotics: The patient does not require prophylactic ? antibiotics. Prior Anticoagulants: The patient has taken ? no previous anticoagulant or antiplatelet agents. ASA ? Grade Assessment: II - A patient with mild systemic ? disease. After reviewing the risks and benefits, the ? patient was deemed in satisfactory condition to undergo ? the procedure. The anesthesia plan was to use moderate ? sedation / analgesia (conscious sedation). Immediately ? prior to administration of medications, the patient was ? re-assessed for adequacy to receive sedatives. The heart ? rate, respiratory rate, oxygen saturations, blood ? pressure, adequacy of pulmonary ventilation, and ? response to care were monitored throughout the ? procedure. The physical status of the patient was ? re-assessed after the procedure. ? - Sedation was administered by an endoscopy nurse. The ? sedation level attained was moderate. ? - The heart rate, respiratory rate, oxygen saturations, ? blood pressure, adequacy of pulmonary ventilation, and ? response to care were monitored throughout the procedure. ? - The physical status of the patient was re-assessed ? after the procedure. ? After I obtained informed consent, the scope was passed ? under direct vision. Throughout the procedure, the ? patient's blood pressure, pulse, and oxygen saturations ? were monitored continuously. The Colonoscope was ? introduced through the anus and advanced to the terminal ? ileum, with identification of the appendiceal orifice ? and IC valve. The colonoscopy was performed without ? difficulty. The patient tolerated the procedure well. ? The quality of the bowel preparation was excellent. The ? terminal ileum, ileocecal valve, appendiceal orifice, ? and rectum were photographed. Findings: ? The perianal and digital rectal examinations were normal. ? The colon (entire examined portion) appeared normal. ? The terminal ileum appeared normal. ? A few small-mouthed diverticula were found in the sigmoid colon. Impression: ?- The entire examined colon is normal. ? - The examined portion of the ileum was normal. ? - Diverticulosis in the sigmoid colon. ? - No specimens collected. Recommendation: ?- Patient has a contact number available for ? emergencies. The signs and symptoms of potential delayed ? complications were discussed with the patient. Return to ? normal activities tomorrow. Written discharge ? instructions were provided to the patient. ? - Resume previous diet today. ? - Continue present medications. ? - Await pathology results. ? - Repeat colonoscopy in 10 years for screening purposes. ? - Return to primary care physician as previously ? scheduled. Attending Participation: ? I personally performed the entire procedure. Dr. MD Chivo Ferrer MD 02/28/2015 12:04:14 PM This report has been signed electronically by Chivo Antonio MD Number of Addenda: 0 Note Initiated On: 02/28/2015 9:35 AM Procedure Start: 11:45:11 AM Procedure End: 11:52:23 AMDIG[facility] DISEASE INSTITUTEAnatomical RegionLaterality ModalityOtherSpecimen (Source)Anatomical Location / LateralityCollection Method / VolumeCollection TimeReceived Time02/28/2015 9:35 AM EST Narrative Authorizing ProviderResult TypeResult StatusCcf ProviderDIGESTIVE DISEASEFinal Result * HPV DNA ASSAY (05/14/2008 9:30 AM EST)ComponentValueRef RangeTest Method Analysis TimePerformed AtPathologist SignatureHPV DNA AssayNegative for HPV High or Intermediate risk types 16, 18, 31, 33, 35, 39, 45, 51, 52, 56, 58, 59, 68. Low risk HPV types are not detected by this assay. Performed at [facility],[address] [place] [id number] LABORATORYSpecimen (Source)Anatomical Location / Laterality Collection Method / VolumeCollection TimeReceived Time05/14/2008 9:30 AM EST Narrative Authorizing ProviderResult TypeResult StatusAnthwashington Luna Jr. MICROBIOLOGYFinal ResultPerforming OrganizationAddressCity/State/ZIP CodePhone Number [facility] [address] [place] [phone] from Last 3 Months or Most Recently Relevant to Health Maintenance Insurance Advance Directives TypeDate RecordedPatient RepresentativeExplanationAdvance Directive(s)08/31/2022 2:53 PMAdvance Directive(s)03/19/2016 4:10 PMAdvance Directive(s)02/28/2015 10:03 AMAdvance Directive(s)02/19/2012 5:08 PM * Full Code (Latest Code Status on File) Date ActivatedDate InactivatedComments08/31/2022 12:06 AM09/02/2022 5:37 PMQuestion AnswerCommentsFull Code Order Discussed With:* Patient * Full Code Date ActivatedDate InactivatedComments06/20/2021 10:05 PM2 8:08 PM QuestionAnswerCommentsFull Code Order Discussed With:* Patient Care Teams Team MemberRelationshipSpecialtyStart DateEnd Date Arsen Winn MD [address] [place] [address] PCP - GeneralFamily Medicine07/01/19
--- NOTE | 2025-03-12 09:18 | XR_ITS ---
The [address] [address] Patient Name: CM ZHENG MRN: [id number] date: 1960 Sex: F Assigned Patient Location: [facility] Current Patient Location: [facility] Accession/Order Number: [id number] Exam Date: 03/12/2025 09:25 Report Date: 03/12/2025 09:43 At the request of: LAYLA NEWMAN Procedure: XR chest 2V PA AND LATERAL CHEST: CLINICAL HISTORY: shortness of breath, cough and congestion. Asthma. COMPARISON: None There is minor basilar atelectasis or scarring. There is no focal parenchymal consolidation, effusion or pneumothorax. The cardiac, hilar and mediastinal silhouettes are within normal limits. There is no vascular congestion. The visualized bony thorax is intact. End plate spurring and subtle dextroscoliotic curvature are present at the spine . XR/XR chest 2V IMPRESSION: MINIMAL ATELECTASIS AND/OR SCARRING. NO OTHER ACUTE FINDINGS. Impression dictated by: Karin Powers M.D. 03/12/2025 9:43 AM Dictation Location: [place] [address] Electronically authenticated by: [id number] Y Date: 03/12/2025 09:43
== END 2025-03-12 09:01 | disposition home or self-care (01) ==
LOC: RAD 09:06
PROVIDERS: PCP Nurse Practitioner Family; Visit Provider Nurse Practitioner Family
DX: R06.02 Shortness of breath (principal); J45.20 Mild intermittent asthma, uncomplicated
CPT/HCPCS: 71046